=== PATIENT | male | born 1960 | race African-American/Black ===

== ENCOUNTER 2019-09-21 09:08 | Emergency (ER) | payer OTHER ==
--- NOTE | 2019-09-21 09:38 | ER ---
Nurse's Notes [facility] Name: Diego Watt Age: 58 yrs Sex: Male : 1960 Arrival Date: 09/21/2019 Time: 09:13 Bed Waiting Private MD: Diagnosis: Presentation: 09/21 09:28 Presenting complaint: Patient states: "I think I have a tooth abscess on the left side aa5 and my ear hurts and my throat hurts too". No facial swelling noted in triage. Pt reports symptoms began 1 week ago. Transition of care: patient was not received from another setting of care. Onset of symptoms was September 2019. Risk Assessment: Do you want to hurt yourself or someone else? Patient reports no desire to harm self or others. Initial Sepsis Screen: Does the patient meet any 2 criteria? No. Patient's initial sepsis screen is negative. Does the patient have a suspected source of infection? No. Patient's initial sepsis screen is negative. Care prior to arrival: None. 09:28 Acuity: RANJEET 3 aa5 09:28 Method Of Arrival: Ambulatory aa5 Historical: - Allergies: 09:30 No Known Allergies; aa5 - PMHx: 09:30 Hypertension; aa5 09:31 COPD; Hyperlipidemia; Chronic pain; aa5 - PSHx: 09:30 Hardware in right ankle; aa5 - Immunization history:: Flu vaccine is not up to date. - Social history:: Smoking status: Patient/guardian denies using tobacco. - Ebola Screening: : No symptoms or risks identified at this time. Vital Signs: 09:31 BP 135 / 87; Pulse 63; Resp 16 S; Temp 98.0(TE); Pulse Ox 98% on R/A; Weight 86.64 kg aa5 (R); Height 6 ft. 2 in. (187.96 cm) (R); Pain 10/10; 09:31 Body Mass Index 24.52 (86.64 kg, 187.96 cm) aa5 ED Course: 09:13 Patient arrived in ED. as 09:28 Arm band placed on. aa5 09:30 Triage completed. aa5 09:36 Conrad Colunga MD is Attending Physician. aa5 Administered Medications: No medications were administered Outcome: 09:36 Patient left the ED. aa5 Signatures: Margaret Moraes, Gina, RN RN aa5
[2019-09-21 13:28] VITALS: BP 135/87; TEMP 98; O2SAT 98
--- OUTSIDE RECORDS SUMMARY | 2019-09-25 03:00 | XMS REPORT | Summary of Care ---
:1960 Author Organization [facility] - Health Address [address] [place] [address] Care Team Providers Name Role Phone Won Barriga Primary Care Provider Encounter Details Date Type Department Care Team Description 06/26/2019 Orders Only [facility] Doctor Unassigned, No [address] [facility] Name [place] [id number] [place] [address] Allergies No Known Allergiesdocumented as of this encounter (statuses as of 06/26/2019) Medications Medication Sig Dispensed Refills Start Date End Date Status HYDROcodone-acetaminophe Take 1 tablet by 0 Active n (NORCO) 10-325 mg mouth 3 (three) tablet times daily. carisoprodol (SOMA) 350 Take 350 mg by 0 Active mg tablet mouth 2 (two) times daily. amitriptyline (ELAVIL) Take 25 mg by 0 Active 25 mg tablet mouth at bedtime. zolpidem (AMBIEN CR) Take 12.5 mg by 0 Active 12.5 mg CR tablet mouth at bedtime. meloxicam (MOBIC) 7.5 mg Take 7.5 mg by 0 Active tablet mouth daily. documented as of this encounter (statuses as of 06/26/2019) Active Problems No known active problemsdocumented as of this encounter (statuses as of 2018) Social History Tobacco Use Types Packs/Day Years Used Date Former Smoker Quit: 06/06/2006 Smokeless Tobacco: Never Used Alcohol Use Drinks/Week oz/Week Comments Yes 0 Standard drinks or equivalent 0.0 Occasional Drinker Sex Assigned at Date Recorded Not on file Job Start Date Occupation Industry Not on file Not on file Not on file Travel History Travel Start Travel End No recent travel history available. documented as of this encounter Last Filed Vital Signs Not on filedocumented in this encounter Plan of Treatment Date Type Specialty Care Team Description 06/26/2019 [place] Visit Clinical Medical Jessica De La Garza MD [address] [place] [address] Laboratory 1, [facility] Health Maintenance Due Date Last Done Comments HEPATITIS C (HCV) SCREEN 1960 DTaP,Tdap,and Td Vaccines (1 - 1979 Tdap) COLONOSCOPY 2010 Zoster Recombinant Vaccine 2010 (SHINGRIX) (1 of 2) LUNG CANCER SCREEN: Recommended 2015 for age 55-80 with 30 + pack year history INFLUENZA VACCINE 07/16/2019 PNEUMOCOCCAL 0-64 YEARS COMBINED Aged Out No longer eligible based on SERIES patient's age to complete this topic documented as of this encounter Procedures Procedure Name Priority Date/Time Associated Diagnosis Comments ASSIGNMENT OF BENEFITS Routine 06/26/2019 9:52 AM CDT documented in this encounter Results Not on filedocumented in this encounter Insurance Payer Benefit Plan / Subscriber ID Effective Phone Address Type Group Dates ALBERTO DOMINGUEZ xxxxxxxxx 2015-Pres [address] Medicaid HEALTHCARE - HEALTHCARE [place] [id number] MANAGED MEDICAID [place], [place] MEDICARE MEDICARE PART xxxxxxxxxxx 2017-Pres [phone] Medicare A & B ent [id number] [place] [address] [facility] MEDICAID OF xxxxxxxxx 2018-Pres [phone] [address] Medicaid [place] ent [id number] [place] [address] documented as of this encounter
--- OUTSIDE RECORDS SUMMARY | 2019-09-25 03:00 | XMS REPORT ---
:1960 Author Organization [employer] Care Team Providers Name Role Phone Linus [facility] Provider Role Unavailable Allergies, Adverse Reactions, Alerts Substance Reaction Event Type N.K.D.A. Info Not Available Non Drug Allergy Problems Problem Type Condition Code Onset Dates Condition Status Problem Asthma, unspecified asthma J45.909 Active severity, unspecified whether complicated, unspecified whether persistent Problem Osteoarthritis of multiple joints, M15.9 Active unspecified osteoarthritis type Problem Insomnia, unspecified type G47.00 Active Assessment Upper respiratory tract infection, J06.9 Active unspecified type Assessment Acute non-recurrent maxillary J01.00 Active sinusitis Problem Dribbling of urine N39.43 Active Problem Chronic pain syndrome G89.4 Active Problem Seasonal allergies J30.2 Active Problem Essential hypertension I10 Active Problem Chronic obstructive pulmonary J44.9 Active disease, unspecified COPD type Problem Urinary hesitancy R39.11 Active Problem Hypercholesterolemia E78.00 Active Problem Gastroesophageal reflux disease K21.9 Active without esophagitis Medications Medication Code Code Instructions Start End Status Dosage System Date Date Diclofenac [facility] 47032571005 1 % Transdermal Active not defined Sodium Medrol [facility] 35784034579 4 MG Orally use Sep 21, Sep 27, Active as directed as directed 2018 2018 Lisinopril-Hydr [facility] 89238678882 10-12.5 MG Active 1 tablet ochlorothiazide Orally Once a day Zetia [facility] 62917545000 10 MG Orally Jul 20, Active 1 tablet Once a day 2018 Cilostazol ND 66140383188 100 MG Orally Active not defined Ipratropium ND 42640813090 0.02 % Active 1 vial in [place] Inhalation nebulizer every 6-8 hours PRN cough Ambien ND 02589597206 5 MG Orally Active 1 tablet at Once a day bedtime as needed Hydrocodone-Pietro ND 93595002177 7.5-325 MG Active not defined taminophen Orally Combivent [facility] 15559703136 20MCG /100 MCG Active 2 puffs Respimat Oral Inhalation every 4-6 hours as needed SOB Cough Amoxicillin-Pot [facility] 35246064698 875-125 MG Sep 21, Oct 01, Active 1 tablet Clavulanate Orally every 2018 hrs Tizanidine HCl [facility] 15643370937 4 MG Orally Active not defined Results No Known Results Summary Purpose [employer]Clinical[employer] Submission
--- OUTSIDE RECORDS SUMMARY | 2019-09-25 03:00 | XMS REPORT ---
:1960 Author Organization [employer] Care Team Providers Name Role Phone Won Barriga Provider Role Unavailable Allergies No Known Allergies Problems Problem Type Condition Code Onset Dates Condition Status Problem Asthma, unspecified asthma J45.909 Active severity, unspecified whether complicated, unspecified whether persistent Problem Osteoarthritis of multiple joints, M15.9 Active unspecified osteoarthritis type Problem Insomnia, unspecified type G47.00 Active Assessment Chronic obstructive pulmonary J44.9 Active disease, unspecified COPD type Assessment Screening for colon cancer Z12.11 Active Problem Dribbling of urine N39.43 Active Problem Chronic pain syndrome G89.4 Active Problem Seasonal allergies J30.2 Active Problem Essential hypertension I10 Active Problem Chronic obstructive pulmonary J44.9 Active disease, unspecified COPD type Problem Urinary hesitancy R39.11 Active Problem Hypercholesterolemia E78.00 Active Problem Gastroesophageal reflux disease K21.9 Active without esophagitis Medications Medication Code Code Instructions Start End Date Status Dosage System Date Combivent [facility] 10749127769 20MCG /100 MCG Active 2 puffs Respimat Oral Inhalation every 4-6 hours as needed SOB Cough Results No Known Results Summary Purpose eClinicalWorks Submission
--- OUTSIDE RECORDS SUMMARY | 2019-09-25 03:00 | XMS REPORT | Summary of Care ---
:1960 Author Organization [facility] Address [address] [place] [address] Care Team Providers Name Role Phone BarrigaSilvestre solorzanoh Lindsey Primary Care Provider Reason for Visit Reason Comments LAB WORK Auth/Cert Status Reason Specialty Diagnoses / Referred By Referred To Procedures Contact Contact Clinical Medical Diagnoses Pure hypercholesterolemia, unspecified Pure hypercholesterolemia, unspecified [E78.00] [facility] Lab Laboratory Procedures LIPID,U/A,CBC,CMP [address] [facility] [place] [address] Encounter Details Date Type Department Care Team Description 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 [facility] Jessica De La Garza MD [address] [place] [address] Pure hypercholesterolemia (Primary Dx); Phlebotomy 1, [facility] Lab Essential hypertension, benign Lab-[address] [place] [address] Allergies No Known Allergiesdocumented as of this [...] filedocumented in this encounter Plan of Treatment Name Type Priority Associated Diagnoses Date/Time LIPID PANEL (82038)(TOTAL LAB Routine Pure 06/26/2019 10:06 AM CHOLESTEROL, hypercholesterolemia CDT TRIGLYCERIDES, HDL) Essential hypertension, benign CBC WITH DIFF LAB Routine Pure 06/26/2019 10:06 AM hypercholesterolemia CDT Essential hypertension, benign COMP. METABOLIC PANEL LAB Routine Pure 06/26/2019 10:06 AM (34980) hypercholesterolemia CDT Essential hypertension, benign CBC WITH DIFFERENTIAL LAB Routine Pure 06/26/2019 10:06 AM hypercholesterolemia CDT Essential hypertension, benign Name Type Priority Associated Diagnoses Order Schedule URINALYSIS LAB Routine Pure hypercholesterolemia Ordered: 06/26/2019 Essential hypertension, benign Health Maintenance Due Date Last Done Comments [...] this topic documented as of this encounter Results Not on filedocumented in this encounter Visit Diagnoses Diagnosis Pure hypercholesterolemia - Primary Essential hypertension, benign documented in this encounter Insurance Payer Benefit Plan / Subscriber ID Effective Dates Phone Address Type Group MEDICARE MEDICARE PART xxxxxxxxxxx 2017-Annamarie [phone] [address] Medicare A & B t [id number] [place] [address] [facility] MEDICAID OF xxxxxxxxx 2018-Annamarie [phone] [address] Medicaid [place] 0 [id number] [place] [address] documented as of this encounter
--- OUTSIDE RECORDS SUMMARY | 2019-09-25 03:00 | XMS REPORT ---
:1960 [facility] Address [address] [place] [address] [address] [place] [address] Care Team Providers Name Role Phone Unavailable Unavailable Unavailable Problems This patient has no known problems. Allergies, Adverse Reactions, Alerts This patient has no known allergies or adverse reactions. Medications This patient has no known medications.
== END 2019-09-21 09:36 | disposition left against medical advice (07) ==
LOC: ER 09:08
DX: Z02.9 Encounter for administrative examinations, unspecified (principal)
CPT/HCPCS: 99281

== ENCOUNTER 2021-10-10 10:43 | Emergency (ER) | payer OTHER ==
[2021-10-10] MEDS ORDERED: ACETAMINOPHEN 500 MG TAB ONE (11:22)
[2021-10-10] MEDS ORDERED: IBUPROFEN 400 MG TAB ONE (11:22)
--- NOTE | 2021-10-10 11:27 | ER ---
Nurse's Notes [facility] Name: Diego Watt Age: 60 yrs Sex: Male : 1960 Arrival Date: 10/10/2021 Time: 10:49 Bed 11 Private MD: Won Barriga Diagnosis: Disorder of teeth and supporting structures, unspecified Presentation: 10/10 10:58 Chief complaint: Patient states: "I was brushing my teeth and the toothbrush scraped my ss gums and now the whole L side of my face is hurting up to my ear. It started , but got worse this morning" Pt reports poor dentition. Coronavirus screen: Client denies travel out of the [place] in the last 14 days. Ebola Screen: Patient denies exposure to infectious person. Patient denies travel to an Ebola-affected area in the 21 days before illness onset. Initial Sepsis Screen: Does the patient meet any 2 criteria? No. Patient's initial sepsis screen is negative. Does the patient have a suspected source of infection? No. Patient's initial sepsis screen is negative. Risk Assessment: Do you want to hurt yourself or someone else? Patient reports no desire to harm self or others. Onset of symptoms was October 09, 2021. 10:58 Method Of Arrival: Ambulatory ss 10:58 Acuity: RANJEET 4 ss Historical: - Allergies: 11:01 No Known Allergies; ss - PMHx: 11:01 Chronic pain; COPD; Hyperlipidemia; Hypertension; ss - Immunization history:: Client reports receiving the 2nd dose of the Covid vaccine. - Social history:: Smoking status: Patient reports the use of cigarette tobacco products, denies chronic smoking, but will smoke occasionally. Screenin:20 Abuse screen: Denies threats or abuse. Denies injuries from another. Nutritional ss screening: No deficits noted. Tuberculosis screening: Never had TB. Fall Risk None identified. Assessment: 11:20 General: Appears in no apparent distress. comfortable, Behavior is calm, cooperative, ss Denies fever, feeling ill, fatigue, chills. Pain: Complains of pain in L side of gums Pain radiates to left ear Pain currently is 10 out of 10 on a pain scale. Quality of pain is described as aching, Is continuous. Neuro: Level of Consciousness is awake, alert, Oriented to person, place, time, situation. Cardiovascular: Capillary refill < 3 seconds is brisk in bilateral fingers. Respiratory: Airway is patent Respiratory effort is even, unlabored, Respiratory pattern is regular, symmetrical. GI: Patient currently denies diarrhea, nausea, vomiting. EENT: Nares are clear Oral mucosa is moist. Derm: Skin is intact, is healthy with good turgor, Skin is dry, Skin is pink, warm \\T\\ dry. normal. Vital Signs: 10:58 BP 140 / 82; Pulse 63; Resp 16; Temp 97.8(TE); Pulse Ox 100% on R/A; Weight 95.25 kg; ss Height 6 ft. 2 in. (187.96 cm); Pain 10/10; 10:58 Body Mass Index 26.96 (95.25 kg, 187.96 cm) ED Course: 10:49 Patient arrived in ED. mr 10:50 Won Barriga DO is Private Physician. mr 11:01 Triage completed. ss 11:01 Arm band placed on left wrist. ss 11:11 Abdias Means PA is PHCP. cp 11:11 Conrad Colunga MD is Attending Physician. cp 11:20 hCeyenne Wliliamson, CHEN is Primary Nurse. ss 11:20 Patient has correct armband on for positive identification. Bed in low position. Call ss light in reach. 11:26 No provider procedures requiring assistance completed. Patient did not have IV access ss during this emergency room visit. Administered Medications: 11:25 Drug: Tylenol 1000 mg Route: PO; ss 11:36 Follow up: Response: No adverse reaction; Medication administered at discharge. ss 11:25 Drug: Clindamycin 600 mg Route: PO; ss 11:37 Follow up: Response: No adverse reaction; Medication administered at discharge. ss 11:25 Drug: Ibuprofen 800 mg Route: PO; ss 11:37 Follow up: Response: Medication administered at discharge. Outcome: 11:27 Discharge ordered by . cp 11:35 Discharged to home ambulatory. ss 11:35 Condition: good 11:35 Discharge instructions given to patient, family, Instructed on discharge instructions, follow up and referral plans. medication usage, Demonstrated understanding of instructions, follow-up care, Prescriptions given X 2. 11:36 Patient left the ED. Signatures: Soila Gray mr Cheyenne Williamson, RN RN ss Clary, Abdias, PA PA cp
--- NOTE | 2021-10-10 11:27 | EDPHYS ---
Physician Documentation [facility] Name: Diego Watt Age: 60 yrs Sex: Male : 1960 Arrival Date: 10/10/2021 Time: 10:49 Bed 11 Private MD: Linus [facility] ED Physician Conrad Colunga HPI: 10/10 11:20 This 60 yrs old Black Male presents to ER via Ambulatory with complaints of Sinus cp Congestion, Ear Pain, Facial Swelling. 11:20 The patient presents with pain, swelling. The problem is located in the left upper jaw. cp 11:20 Onset: The symptoms/episode began/occurred yesterday, and became worse today. cp Associated signs and symptoms: Pertinent positives: left ear and neck pain, Pertinent negatives: dysphagia, fever, inability to eat, vomiting. Patient reports she was brushing teeth and believes he caused laceration to left upper outer gum line. Patient c/o pain and swelling of face, tooth pain and sinus congestion/pain. Historical: - Allergies: 11: No Known Allergies; ss - PMHx: 11:01 Chronic pain; COPD; Hyperlipidemia; Hypertension; ss - Immunization history:: Client reports receiving the 2nd dose of the Covid vaccine. - Social history:: Smoking status: Patient reports the use of cigarette tobacco products, denies chronic smoking, but will smoke occasionally. ROS: 11:22 Constitutional: Negative for body aches, chills, fever, poor PO intake. cp 11:22 Eyes: Negative for injury, pain, redness, and discharge. cp 11:22 ENT: Positive for dental pain, ear pain, Gum pain sinus congestion, sinus pain, Negative for drainage from ear(s), sore throat, difficulty swallowing, difficulty handling secretions. 11:22 Cardiovascular: Negative for chest pain. 11:22 Respiratory: Negative for cough, shortness of breath, wheezing. 11:22 Abdomen/GI: Negative for abdominal pain, nausea, vomiting, and diarrhea. 11:22 Skin: Negative for rash. 11:22 Neuro: Negative for altered mental status, headache, weakness. 11:22 All other systems are negative. Exam: 11:25 Constitutional: The patient appears in no acute distress, alert, awake, non-toxic, well cp developed, well nourished, uncomfortable. 11:25 Head/face: Sinus tenderness, that is moderate, is located over the left maxillary cp sinus. 11:25 Eyes: Periorbital structures: appear normal, Conjunctiva: normal, no exudate, no injection, Sclera: no appreciated abnormality, Lids and lashes: appear normal, bilaterally. 11:25 ENT: External ear(s): are unremarkable, Ear canal(s): are normal, clear, TM's: dullness, bilaterally, Nose: is normal, Mouth: Lips: moist, Oral mucosa: moist, Gums: swollen, on the gums, abscess, is not appreciated, Posterior pharynx: Airway: no evidence of obstruction, patent, swelling, is not appreciated, erythema, is not appreciated, exudate, is not appreciated, Dental exam: abscess, is not appreciated, dental caries, that is severe, diffusely, missing teeth, diffusely, pain, that is mild, specifically in the upper left cuspid (#11), Voice: is normal. 11:25 Neck: External neck: swelling, is not appreciated, tenderness, that is mild, left lateral neck, ROM/movement: limited range of motion, is not appreciated, Meningeal signs: are not present, nuchal rigidity, is not appreciated. 11:25 Chest/axilla: Inspection: normal. 11:25 Cardiovascular: Rate: normal. 11:25 Respiratory: the patient does not display signs of respiratory distress, Respirations: normal, no use of accessory muscles, no retractions. 11:25 Skin: cellulitis, is not appreciated, no rash present. 11:25 Neuro: Orientation: to person, place \T\ time. Mentation: is normal. Vital Signs: 10:58 BP 140 / 82; Pulse 63; Resp 16; Temp 97.8(TE); Pulse Ox 100% on R/A; Weight 95.25 kg; ss Height 6 ft. 2 in. (187.96 cm); Pain 10/10; 10:58 Body Mass Index 26.96 (95.25 kg, 187.96 cm) ss MDM: 11:19 Patient medically screened. cp 11:25 Differential diagnosis: dental caries, dental abscess, gingivostomatitis. cp 11:25 Counseling: I had a detailed discussion with the patient and/or guardian regarding: the cp historical points, exam findings, and any diagnostic results supporting the discharge/admit diagnosis, the need for outpatient follow up, for definitive care, a dentist, to return to the emergency department if symptoms worsen or persist or if there are any questions or concerns that arise at home. ED course: VSS. Patient appears non-toxic. Review of [place] prescription monitor website shows patient has recent prescription for hydrocodone. Will discharge to home with RX for oral antibiotic and recommend dental f/u. 11:26 Data reviewed: vital signs, nurses notes. cp Administered Medications: 11:25 Drug: Tylenol 1000 mg Route: PO; ss 11:36 Follow up: Response: No adverse reaction; Medication administered at discharge. ss 11:25 Drug: Clindamycin 600 mg Route: PO; ss 11:37 Follow up: Response: No adverse reaction; Medication administered at discharge. ss 11:25 Drug: Ibuprofen 800 mg Route: PO; ss 11:37 Follow up: Response: Medication administered at discharge. ss Disposition: 11:45 Chart complete. cp 17:21 Co-signature as Attending Physician, Conrad Colunga MD I agree with the assessment and kdr plan of care. Disposition Summary: 10/10/21 11:27 Discharge Ordered Location: Home cp Problem: new cp Symptoms: have improved cp Condition: Stable cp Diagnosis - Disorder of teeth and supporting structures, unspecified cp Followup: cp - With: Private Physician - When: 2 - 3 days - Reason: Recheck today's complaints Discharge Instructions: - Discharge Summary Sheet cp - Dental Pain cp Forms: - Medication Reconciliation Form cp - Thank You Letter cp - Antibiotic Education cp - Prescription Opioid Use cp Prescriptions: - Clindamycin HCl 300 mg Oral Capsule - take 1 capsule by ORAL route every 6 hours for 10 days; 40 capsule; Refills: 0, cp Product Selection Permitted - Ibuprofen 800 mg Oral Tablet - take 1 tablet by ORAL route every 8 hours As needed take with food; 30 tablet; cp Refills: 0, Product Selection Permitted Signatures: Conrad Colunga MD MD [facility] Cheyenne Williamson RN RN ss Abdias Means PA PA cp
[2021-10-10 11:44] VITALS: BP 140/82; TEMP 97.8; O2SAT 100
--- OUTSIDE RECORDS SUMMARY | 2021-10-10 11:51 | XMS REPORT | Continuity of Care Document ---
:1960 Author Organization [facility] t Address [address] [place] [address] Care Team Providers Name Role Phone 1, Lab Attending Clinician Unavailable Ward De La Garza MD Attending Clinician Doctor Unassigned, Name Attending Clinician Unavailable Payers Payer Name Policy Type Policy Number Effective Date Expiration Date S ource Problems Condition Condition Condition Status Onset Resolution Last Treating Co mments Source Name Details Category Date Date Treatment Clinician Date No known No known Disease Unive rs active active ity of problems problems [facility] Allergies, Adverse Reactions, Alerts This patient has no known allergies or adverse reactions. Social History Social Habit Start Date Stop Date Quantity Comments Source Alcohol intake [facility] History of 2006-06-06 Current smoker [place] of tobacco use 00:00:00 [facility] Smoking Status Start Date Stop Date Source Former smoker 2019-03-20 00:00:00 2019-03-20 00:00:00 [facility] Medications Ordered Filled Start Stop Current Ordering Indication Dosage Frequency Signature Comments Components Source Medication Medication Date Date Medication? Clinician (SIG) Name Name Claritin Claritin 2020-0 2020- No Won [address] [facility] Fenofibrate Fenofibrate 2018- Yes Won [address] [facility] 2[facility]03 [facility] with food [facility] amitriptyli Yes 25mg Take 25 mg Univers ne (ELAVIL) 4-15 by mouth ity of 25 mg 15:05: at [place] tablet 26 bedtime. Medical Branch zolpidem Yes 12.5mg Take 12.5 Un jeri (AMBIEN CR) 4-15 mg by ity of 12.5 mg CR 15:05: mouth at [place] tablet 26 bedtime. Medical Branch meloxicam Yes 7.5mg Take 7.5 Uni vers (MOBIC) 7.5 4-15 mg by ity of mg tablet 15:05: mouth [place] 26 daily. Medical Branch HYDROcodone Yes 1{tbl} Take 1 Un jeri -acetaminop 4-15 tablet by ity of hen (NORCO) 15:05: mouth 3 [place] as 10-325 mg 26 (three) Medical tablet times Branch daily. carisoprodo Yes 350mg Take 350 U nivers l (SOMA) 4-15 mg by ity of 350 mg 15:05: mouth 2 [place] tablet 26 (two) Medical times Branch daily. amitriptyli Yes 25mg Take 25 mg Univers ne (ELAVIL) 4-15 by mouth ity of 25 mg 15:05: at [place] tablet 26 bedtime. Medical Branch zolpidem Yes 12.5mg Take 12.5 Un jeri (AMBIEN CR) 4-15 mg by ity of 12.5 mg CR 15:05: mouth at [place] tablet 26 bedtime. Medical Branch meloxicam Yes 7.5mg Take 7.5 Uni vers (MOBIC) 7.5 4-15 mg by ity of mg tablet 15:05: mouth [place] 26 daily. Medical Branch HYDROcodone Yes 1{tbl} Take 1 Un jeri -acetaminop 4-15 tablet by ity of hen (NORCO) 15:05: mouth 3 [place] as 10-325 mg 26 (three) Medical tablet times Branch daily. carisoprodo Yes 350mg Take 350 U nivers l (SOMA) 4-15 mg by ity of 350 mg 15:05: mouth 2 [place] tablet 26 (two) Medical times Branch daily. Ipratropium Ipratropium Yes Won [address] [facility] [place] [facility] nebulizer Porsha es - [facility] Tizanidine Tizanidine Yes Won not [facility] HCl HCl [facility] defined [facility] Lisinopril- Lisinopril- Yes Won [address] [facility] Hydrochloro Hydrochloro [facility] - thiazide thiazide [facility] Zetia Zetia Yes Won [address] [facility] amitriptyli amitriptyli Yes Won not [facility] ne ne [facility] defined [facility] Hydrocodone Hydrocodone Yes Own not [facility] -Acetaminop -Acetaminop [facility] defined [facility] hen [facility] Diclofenac Diclofenac Yes Won not [facility] Sodium Sodium [facility] defined [facility] Ambien Ambien Yes Won 1 tablet [facility] at bedtime [facility] - as needed [facility] Ezetimibe Ezetimibe Yes Won (Prior [facility] Auth#:0000 [facility] - [id number]) [facility] Zolpidem Zolpidem Yes Won (Schedule [facility] Tartrate Tartrate [facility] IV Drug) Cora kes - (Prior [facility] Auth#:0000 l [id number]) Outpati ent Clinics Cilostazol Cilostazol Yes Won not [facility] defined [facility] Combivent Combivent 2018- No Won [address] [facility] Respimat Respimat 10-18 [facility] Procedures Procedure Date / Time Performed Performing Clinician [facility] e ASSIGNMENT OF BENEFITS 2019-06-26 14:52:33 Doctor Unassigned, No [facility] Encounters Start End Encounter Admission Attending Care Care Encounter Source Date/Time Date/Time Type Type Clinicians Facility Department ID 2021-09-15 2021-09-15 ambulatory [facility] [id number] [facility] 2021-09-11 2021-09-11 Outpatient [facility] [id number] [facility] 2021-07-07 2021-07-07 Outpatient [facility] [id number] [facility] 2021-06-13 2021-06-13 Outpatient [facility] [id number] [facility] 2021-05-22 2021-05-22 Outpatient [facility] [id number] [facility] 2021-05-21 2021-05-21 Outpatient [facility] [id number] [facility] 2021-04-15 2021-04-15 Outpatient [facility] [id number] [facility] 2021-01-23 2021-01-23 Outpatient [facility] [id number] [facility] 2021-01-21 2021-01-21 Outpatient [facility] [id number] [facility] 2021-01-16 2021-01-16 Outpatient [facility] [id number] [facility] 2020-11-14 2020-11-14 Outpatient [facility] [id number] [facility] 2020-10-24 2020-10-24 Outpatient [facility] [id number] [facility] 2020-07-25 2020-07-25 [facility] [id number] [facility] 09:00:00 09:00:[address] Luke s - Drive [facility] 2020-07-25 2020-07-25 [facility] [id number] [facility] [address] 08:00:00 08:00:00 t [employer] Geelbe s - Drive [facility] ent Clinics 2020-05-20 2020-05-20 [facility] [id number] [address] 09:15:00 09:15:00 t Bone Bone and [facility] ent [facility] 2020-04-19 2020-04-19 [facility] [id number] [address] 08:15:00 08:15:00 t [employer] Geelbe s [employer] [facility] ent Clinics 2020-03-19 2020-03-19 [facility] [id number] 08:30:00 08:30:00 t Bone [facility] and [facility] ent Clinics 2020-02-13 2020-02-13 [facility] [id number] [address] 13:20:00 13:20:[address] [facility] ent Clinics 2020-02-13 2020-02-13 [facility] [id number] 09:10:00 09:10:00 t [employer] Geelbe s [employer] [facility] ent Clinics 2020-01-18 2020-01-18 [facility] [id number] [address] 08:15:00 08:15:00 t Sandy [employer] Geelbe s - [facility] ent Clinics 2019-12-12 2019-12-12 [facility] [id number] 15:15:00 15:15:00 t Bone Bone and [facility] ent Clinics 2019-12-11 2019-12-11 [facility] [id number] 15:03:00 15:03:00 t Sandy [employer] Geelbe [employer] [facility] ent Clinics 2019-11-30 2019-11-30 [facility] [id number] 10:06:00 10:06:00 t Sandy [employer] Luke s - Drive [facility] 2019-11-30 2019-11-30 [facility] [id number] 08:36:00 08:36:00 t Bone Bone and [facility] ent Clinics 2019-11-22 2019-11-22 [facility] [id number] 11:29:00 11:29:00 t Bone [facility] and [facility] ent Clinics 2019-11-22 2019-11-22 [facility] [id number] [address] 08:00:00 08:00:00 t Bone Bone and [facility] ent Clinics 2019-10-30 2019-10-30 [facility] [id number] 09:58:00 09:58:00 t Sandy Sandy [employer] Luke s - Drive [facility] 2019-10-17 2019-10-17 [facility] [id number] 09:00:00 09:00:00 t Sandy [employer] Luke s - Drive [facility] 2019-10-10 2019-10-10 [facility] [id number] 17:02:00 17:02:[address] Luke s - Drive [facility] 2019-09-21 2019-09-21 [facility] [id number] 10:00:00 10:00:[address] Luke s - Drive [facility] 2019-08-15 2019-08-15 [facility] [id number] 10:29:00 10:29:00 t Sandy [employer] Luke s - Drive [facility] 2019-07-20 2019-07-20 [facility] [id number] 13:45:00 13:45:[address] Luke s - Elephant[employer]is [facility] Medicine Medicine Outpati ent Clinics 2019-07-13 2019-07-13 [facility] [id number] [address] 10:53:00 10:53:00 [employer] - Ele[employer] [facility] Medicine Outpati ent Clinics 2019-06-26 2019-06-26 Travel Professional 1, Adc Lab [facility] [id number] [facility] 09:53:08 10:08:08 Visit Jessica De La Garza [id number] ity of [place] [id number] [facility] [id number] [facility] 353 Branch 2019-06-26 2019-06-26 Orders Doctor RUDY [id number] Univers 00:00:00 00:00:00 Only Unassigned, MARIEL [id number] ity of [place] [facility] [id number] [place] [id number] [facility] 009 Branch 2019-06-15 2019-06-15 [facility] [id number] [address] 08:45:00 08:45:00 [employer] [facility] Medicine Outpati ent Clinics 2019-06-09 2019-06-09 [facility] [id number] 09:31:00 09:31:00 [employer] [facility] Medicine Outpati ent Clinics 2018-06-22 2018-06-22 [facility] [id number] 10:45:00 10:45:00 [employer] [facility] Medicine Outpati ent Clinics Results This patient has no known results.
== END 2021-10-10 11:36 | disposition home or self-care (01) ==
LOC: ER 10:43
DX: K08.9 Disorder of teeth and supporting structures, unspecified (principal); G89.4 Chronic pain syndrome; I10 Essential (primary) hypertension; F17.210 Nicotine dependence, cigarettes, uncomplicated
CPT/HCPCS: 99283

== ENCOUNTER → 2023-11-04 | Emergency (ER) | payer OTHER ==
[~2023-11-04] MED LIST: ALBUTEROL 2.5 MG/3 ML NEB SOL ONE; IPRATROPIUM BROM 0.5MG/2.5ML ONE; METHYLPREDNISOLONE 125 MG INJ ONE
--- OUTSIDE RECORDS SUMMARY | 2023-11-04 10:08 | XMS REPORT | Continuity of Care Document ---
Author Name Unknown Address [address] [facility] [address] [place] [address] [facility] thconnect Address [address] [facility] [place] [address] Care Team Providers Care Inventory Specialist Name Role Phone Won Barriga Attending Clinician Unavailable 1, [facility] Attending Clinician Unavailable Frederic MARIE, Jessica Hopper Attending Clinician Doctor Unassigned, [place] Attending Clinician U navailable Payers Payer Name Policy Type Policy Number Effective Date Expiration Date Source [facility] [id number] [facility] Problems Condition Name Condition Details Condition Category Status Onset Date Resolution Date Last Treatment Date Treating Clinician Comments Source [id number] BRAYAN (generaliz ed anxiety disorder) Problem [facility] [id number] Asthma, unspecifie d asthma severity, unspecifie d whether complicate d, unspecifie d whether persistent Problem [facility] [id number] Essential hypertensi on Problem [facility] [id number] Insomnia, unspecifie d type Problem [facility] [id number] Osteoarthr itis of multiple joints, unspecifie d osteoarthr itis type Problem [facility] [id number] Dribbling of urine Problem [facility] [id number] COPD with exacerbati on Problem [facility] [id number] Gastroesop hageal reflux disease without esophagiti s Problem [facility] [id number] Hyperchole sterolemia Problem [facility] [id number] Seasonal allergies Problem [facility] [id number] Incomplete emptying of bladder Problem [facility] [id number] Chronic obstructiv e pulmonary disease, unspecifie d COPD type Problem [facility] [id number] BPH loc w urin obs/LUTS Problem [facility] [id number] Urinary hesitancy Problem [facility] [id number] Chronic pain syndrome Problem [facility] [id number] Hypercalce brian Problem [facility] [id number] Osteoarthr itis of left shoulder, unspecifie d osteoarthr itis type Problem [facility] [id number] 101 Benign prostatic hyperplasi a with lower urinary tract symptoms Problem [facility] No known active problems No known active problems Disease [facility] Social History Social Habit Start Date Stop Date Quantity Comments Source History of Tobacco Use [facility] Sex Assigned At [facility] Alcohol intake [facility] Alcohol Comment [facility] Smoking Status Start Date Stop Date Source Former Smoker 2023-08-20 00:00:00 2023-08-20 00:00:00 [facility] Medications Ordered Medication Name Filled Medication Name Start Date Stop Date Current Medication? Ordering Clinician Indication Dosage Frequency Signature (SIG) Comments Components Source Zolpidem Tartrate ER 6.25 MG Zolpidem Tartrate ER 6.25 MG 2022-11 0 00:00: 00 No 1{table t_at_be dtime_a s_neede d} QD Zolpidem Tartrate ER 6.25 MG predniSONE 20 MG predniSONE 20 MG 2022-11 0- 00:00: 00 No 2{table t} QD predniSONE 20 MG Azithromyci n 250 MG Azithromyci n 250 MG 2022-11 0-10 00:00: 00 No QD Azithromyc in 250 MG Zolpidem Tartrate ER 6.25 MG Zolpidem Tartrate ER 6.25 MG 2022-11 0-10 00:00: 00 No 1{table t_at_be dtime_a s_neede d} QD Zolpidem Tartrate ER 6.25 MG predniSONE 20 MG predniSONE 20 MG 2022-11 0-10 00:00: 00 No 2{table t} QD predniSONE 20 MG Azithromyci n 250 MG Azithromyci n 250 MG 2022-11 0-10 00:00: 00 No QD Azithromyc in 250 MG Zolpidem Tartrate ER 6.25 MG Zolpidem Tartrate ER 6.25 MG 2022-11 010 00:00: 00 No 1{table t_at_be dtime_a s_neede d} QD Zolpidem Tartrate ER 6.25 MG predniSONE 20 MG predniSONE 20 MG 2022-11 010 00:00: 00 No 2{table t} QD predniSONE 20 MG Azithromyci n 250 MG Azithromyci n 250 MG 2022-11 010 00:00: 00 No QD Azithromyc in 250 MG Zolpidem Tartrate ER 6.25 MG Zolpidem Tartrate ER 6.25 MG 2022-11 010 00:00: 00 No 1{table t_at_be dtime_a s_neede d} QD Zolpidem Tartrate ER 6.25 MG predniSONE 20 MG predniSONE 20 MG 2022-11 010 00:00: 00 No 2{table t} QD predniSONE 20 MG Azithromyci n 250 MG Azithromyci n 250 MG 2022-11 010 00:00: 00 No QD Azithromyc in 250 MG Zolpidem Tartrate ER 6.25 MG Zolpidem Tartrate ER 6.25 MG 2022-11 010 00:00: 00 No 1{table t_at_be dtime_a s_neede d} QD Zolpidem Tartrate ER 6.25 MG predniSONE 20 MG predniSONE 20 MG 2022-11 0-10 00:00: 00 No 2{table t} QD predniSONE 20 MG Azithromyci n 250 MG Azithromyci n 250 MG 2022-11 0-10 00:00: 00 No QD Azithromyc in 250 MG Zolpidem Tartrate ER 6.25 MG Zolpidem Tartrate ER 6.25 MG 2022-11 0-10 00:00: 00 No 1{table t_at_be dtime_a s_neede d} QD Zolpidem Tartrate ER 6.25 MG predniSONE 20 MG predniSONE 20 MG 2022-11 0-10 00:00: 00 No 2{table t} QD predniSONE 20 MG Azithromyci n 250 MG Azithromyci n 250 MG 2022-11 0-10 00:00: 00 No QD Azithromyc in 250 MG Zolpidem Tartrate ER 6.25 MG Zolpidem Tartrate ER 6.25 MG 2022-11 0-10 00:00: 00 No 1{table t_at_be dtime_a s_neede d} QD Zolpidem Tartrate ER 6.25 MG predniSONE 20 MG predniSONE 20 MG 2022-11 0-10 00:00: 00 No 2{table t} QD predniSONE 20 MG Azithromyci n 250 MG Azithromyci n 250 MG 2022-11 0-10 00:00: 00 No QD Azithromyc in 250 MG Zolpidem Tartrate ER 6.25 MG Zolpidem Tartrate ER 6.25 MG 2022-11 0-10 00:00: 00 No 1{table t_at_be dtime_a s_neede d} QD Zolpidem Tartrate ER 6.25 MG predniSONE 20 MG predniSONE 20 MG 2022-11 0-10 00:00: 00 No 2{table t} QD predniSONE 20 MG Azithromyci n 250 MG Azithromyci n 250 MG 2022-11 0-10 00:00: 00 No QD Azithromyc in 250 MG Kenalog (Triamcinol one) Kenalog (Triamcinol one) 2-17 00:00: 00 No 40mg [facility] Kenalog (Triamcinol one) Kenalog (Triamcinol one) 2-17 00:00: 00 No 40mg [facility] Kenalog (Triamcinol one) Kenalog (Triamcinol one) 0 2-17 00:00: 00 No 40mg [facility] Kenalog (Triamcinol one) Kenalog (Triamcinol one) 0 2-17 00:00: 00 No 40mg [facility] Kenalog (Triamcinol one) Kenalog (Triamcinol one) 0 2-17 00:00: 00 No 40mg [facility] Kenalog (Triamcinol one) Kenalog (Triamcinol one) 0 2-17 00:00: 00 No 40mg [facility] Kenalog (Triamcinol one) Kenalog (Triamcinol one) 0 2-17 00:00: 00 No 40mg [facility] Kenalog (Triamcinol one) Kenalog (Triamcinol one) 0 2-17 00:00: 00 No 40mg [facility] Zolpidem Tartrate 5 MG Zolpidem Tartrate 5 MG 2021- 2-12 00:00: 00 No QD Zolpidem Tartrate 5 MG Zolpidem Tartrate 5 MG Zolpidem Tartrate 5 MG 2021-11 2-12 00:00: 00 No QD Zolpidem Tartrate 5 MG Ambien 5 MG Ambien 5 MG 2021-11 0-19 00:00: 00 No 1{table t_at_be dtime_a s_neede d} Ambien 5 MG Ambien 5 MG Ambien 5 MG 2021-11 0-19 00:00: 00 No 1{table t_at_be dtime_a s_neede d} Ambien 5 MG DULoxetine HCl 30 MG DULoxetine HCl 30 MG 2021- 0-10 00:00: 00 No 1{capsu le} QD DULoxetine HCl 30 MG DULoxetine HCl 30 MG DULoxetine HCl 30 MG 2021- 0-10 00:00: 00 No 1{capsu le} QD DULoxetine HCl 30 MG Ambien 5 MG Ambien 5 MG 2021-0 7-21 00:00: 00 No 1{table t_at_be dtime_a s_neede d} Ambien 5 MG Ambien 5 MG Ambien 5 MG 2021-0 06-04 00:00: 00 No 1{table t_at_be dtime_a s_neede d} Ambien 5 MG Ambien 5 MG Ambien 5 MG 0 06-04 00:00: 00 No 1{table t_at_be dtime_a s_neede d} Ambien 5 MG Ambien 5 MG Ambien 5 MG 0 03-10 00:00: 00 No 1{table t_at_be dtime_a s_neede d} Ambien 5 MG Ambien 5 MG Ambien 5 MG 0 03-10 00:00: 00 No 1{table t_at_be dtime_a s_neede d} Ambien 5 MG Levocetiriz ine Dihydrochlo ride 5 MG Levocetiriz ine Dihydrochlo ride 5 MG 03-10 00:00: 00 04-09 00:00 :00 No 1{table t_in_th e_eveni ng} QD Levocetiri zine Dihydrochl oride 5 MG Ambien 5 MG Ambien 5 MG 12-08 00:00: 00 No 1{table t_at_be dtime_a s_neede d} Ambien 5 MG Ambien 5 MG Ambien 5 MG 12-08 00:00: 00 No 1{table t_at_be dtime_a s_neede d} Ambien 5 MG Ambien 5 MG Ambien 5 MG 12-08 00:00: 00 No 1{table t_at_be dtime_a s_neede d} Ambien 5 MG Ambien 5 MG Ambien 5 MG 12-08 00:00: 00 No 1{table t_at_be dtime_a s_neede d} Ambien 5 MG Combivent Respimat 20MCG /100 MCG Combivent Respimat 20MCG /100 MCG 12-08 00:00: 00 03-08 00:00 :00 No Combivent Respimat 20MCG /100 MCG Combivent Respimat 20MCG /100 MCG Combivent Respimat 20MCG /100 MCG 12-08 00:00: 00 03-08 00:00 :00 No Combivent Respimat 20MCG /100 MCG Combivent Respimat 20MCG /100 MCG Combivent Respimat 20MCG /100 MCG 12-08 00:00: 00 03-08 00:00 :00 No Combivent Respimat 20MCG /100 MCG Ambien 5 MG Ambien 5 MG 2020-11 00:00: 00 No 1{table t_at_be dtime_a s_neede d} Ambien 5 MG Ambien 5 MG Ambien 5 MG 2020-11 00:00: 00 No 1{table t_at_be dtime_a s_neede d} Ambien 5 MG Combivent Respimat 20-100 MCG/ACT Combivent Respimat 20-100 MCG/ACT 3-05 00:00: 00 No 2{puffs _as_nee ded} Combivent Respimat 20-100 MCG/ACT Combivent Respimat 20-100 MCG/ACT Combivent Respimat 20-100 MCG/ACT 3-05 00:00: 00 No 2{puffs _as_nee ded} Combivent Respimat 20-100 MCG/ACT Combivent Respimat 20-100 MCG/ACT Combivent Respimat 20-100 MCG/ACT 2020-0 3-05 00:00: 00 No 2{puffs _as_nee ded} Combivent Respimat 20-100 MCG/ACT Combivent Respimat 20-100 MCG/ACT Combivent Respimat 20-100 MCG/ACT 2020-0 3-05 00:00: 00 No 2{puffs _as_nee ded} Combivent Respimat 20-100 MCG/ACT Bupivicaine Flatgap Bupivicaine Flatgap 5-05 00:00: 00 No 5mL [facility] Kenalog (Triamcinol one) Kenalog (Triamcinol one) 2019-0 5-05 00:00: 00 No 40mg [facility] Bupivicaine Flatgap Bupivicaine Flatgap 2019-0 5-05 00:00: 00 No 5mL [facility] Kenalog (Triamcinol one) Kenalog (Triamcinol one) 2019-0 5-05 00:00: 00 No 40mg [facility] Bupivicaine Flatgap Bupivicaine Flatgap 2019-0 5-05 00:00: 00 No 5mL [facility] Kenalog (Triamcinol one) Kenalog (Triamcinol one) 0 5-05 00:00: 00 No 40mg [facility] Bupivicaine Flatgap Bupivicaine Flatgap 2019-0 5-05 00:00: 00 No 5mL [facility] Kenalog (Triamcinol one) Kenalog (Triamcinol one) 0 5-05 00:00: 00 No 40mg [facility] Bupivicaine Flatgap Bupivicaine Flatgap 2019-0 5-05 00:00: 00 No 5mL [facility] Kenalog (Triamcinol one) Kenalog (Triamcinol one) 0 5-05 00:00: 00 No 40mg [facility] Bupivicaine Flatgap Bupivicaine Flatgap 2019-0 5-05 00:00: 00 No 5mL [facility] Kenalog (Triamcinol one) Kenalog (Triamcinol one) 0 5-05 00:00: 00 No 40mg [facility] Bupivicaine Flatgap Bupivicaine Flatgap 2019-0 5-05 00:00: 00 No 5mL [facility] Kenalog (Triamcinol one) Kenalog (Triamcinol one) 2019-0 5-05 00:00: 00 No 40mg [facility] Bupivicaine Flatgap Bupivicaine Flatgap 2019-0 5-05 00:00: 00 No 5mL [facility] Kenalog (Triamcinol one) Kenalog (Triamcinol one) 2019-0 5-05 00:00: 00 No 40mg [facility] Bupivicaine Flatgap Bupivicaine Flatgap 2019-0 5-05 00:00: 00 No 5mL [facility] Kenalog (Triamcinol one) Kenalog (Triamcinol one) 2019-0 5-05 00:00: 00 No 40mg [facility] Bupivicaine Flatgap Bupivicaine Flatgap 2019-0 5-05 00:00: 00 No 5mL [facility] Kenalog (Triamcinol one) Kenalog (Triamcinol one) 2019-0 5-05 00:00: 00 No 40mg [facility] Bupivicaine Flatgap Bupivicaine Flatgap 2020-0 5-05 00:00: 00 No 5mL [facility] Kenalog (Triamcinol one) Kenalog (Triamcinol one) 2019-0 5-05 00:00: 00 No 40mg [facility] Bupivicaine Flatgap Bupivicaine Flatgap 2019-0 5-05 00:00: 00 No 5mL [facility] Kenalog (Triamcinol one) Kenalog (Triamcinol one) 2019-0 5-05 00:00: 00 No 40mg [facility] Bupivicaine Flatgap Bupivicaine Flatgap 2019-0 5-05 00:00: 00 No 5mL [facility] Kenalog (Triamcinol one) Kenalog (Triamcinol one) 2019-0 5-05 00:00: 00 No 40mg [facility] Bupivicaine Flatgap Bupivicaine Flatgap 2020-0 5-05 00:00: 00 No 5mL [facility] Kenalog (Triamcinol one) Kenalog (Triamcinol one) 2019-0 5-05 00:00: 00 No 40mg [facility] Bupivicaine Flatgap Bupivicaine Flatgap 2020-0 5-05 00:00: 00 No 5mL [facility] Kenalog (Triamcinol one) Kenalog (Triamcinol one) 0 5-05 00:00: 00 No 40mg [facility] Bupivicaine Flatgap Bupivicaine Flatgap 0 5-05 00:00: 00 No 5mL [facility] Kenalog (Triamcinol one) Kenalog (Triamcinol one) 0 5-05 00:00: 00 No 40mg [facility] Bupivicaine Flatgap Bupivicaine Flatgap 0 5-05 00:00: 00 No 5mL [facility] Kenalog (Triamcinol one) Kenalog (Triamcinol one) 0 5-05 00:00: 00 No 40mg [facility] Bupivicaine Flatgap Bupivicaine Flatgap 0 5-05 00:00: 00 No 5mL [facility] Kenalog (Triamcinol one) Kenalog (Triamcinol one) 5-05 00:00: 00 No 40mg [facility] Bupivicaine Flatgap Bupivicaine Flatgap 5-05 00:00: 00 No 5mL [facility] Kenalog (Triamcinol one) Kenalog (Triamcinol one) 0 5-05 00:00: 00 No 40mg [facility] Claritin Claritin 0 3-31 00:00: 00 08-11 00:00 :00 No Won Barriga 1 tablet [facility] Fenofibrate Fenofibrate 2018-11 2-03 00:00: 00 Yes Won Barriga 1 tablet with food [facility] amitriptyli ne (ELAVIL) 25 mg tablet 02-27 15:05: 26 Yes 25mg Take 25 mg by mouth at bedtime. [facility] zolpidem (AMBIEN CR) 12.5 mg CR tablet 02-27 15:05: 26 Yes 12.5mg Take 12.5 mg by mouth at bedtime. [facility] meloxicam (MOBIC) 7.5 mg tablet 02-27 15:05: 26 Yes 7.5mg Take 7.5 mg by mouth daily. [facility] HYDROcodone -acetaminop hen (NORCO) 10-325 mg tablet 02-27 15:05: 26 Yes 1{tbl} Take 1 tablet by mouth 3 (three) times daily. [facility] carisoprodo l (SOMA) 350 mg tablet 02-27 15:05: 26 Yes 350mg Take 350 mg by mouth 2 (two) times daily. [facility] amitriptyli ne (ELAVIL) 25 mg tablet 02-27 15:05: 26 Yes 25mg Take 25 mg by mouth at bedtime. [facility] zolpidem (AMBIEN CR) 12.5 mg CR tablet 02-27 15:05: 26 Yes 12.5mg Take 12.5 mg by mouth at bedtime. [facility] meloxicam (MOBIC) 7.5 mg tablet 02-27 15:05: 26 Yes 7.5mg Take 7.5 mg by mouth daily. [facility] HYDROcodone -acetaminop hen (NORCO) 10-325 mg tablet 02-27 15:05: 26 Yes 1{tbl} Take 1 tablet by mouth 3 (three) times daily. [facility] carisoprodo l (SOMA) 350 mg tablet 02-27 15:05: 26 Yes 350mg Take 350 mg by mouth 2 (two) times daily. [facility] Ipratropium Meadow Ipratropium Meadow Yes Won Barriga 1 vial in nebulizer [facility] Tizanidine HCl Tizanidine HCl Yes Won Barriga not defined [facility] Lisinopril- Hydrochloro thiazide Lisinopril- Hydrochloro thiazide Yes Won Barriga 1 tablet [facility] Zetia Zetia Yes Won Barriga 1 tablet [facility] amitriptyli ne amitriptyli ne Yes Won Barriga not defined [facility] Hydrocodone -Acetaminop hen Hydrocodone -Acetaminop hen Yes Won Barriga not defined [facility] Diclofenac Sodium Diclofenac Sodium Yes Won Barriga not defined [facility] Ambien Ambien Yes Won Barriga 1 tablet at bedtime as needed [facility] Ezetimibe Ezetimibe Yes Won Barriga (Prior Auth#:[id number]) [facility] Zolpidem Tartrate Zolpidem Tartrate Yes Won Barriga (Schedule IV Drug) (Prior Auth#:[id number]) [facility] Cilostazol Cilostazol Yes Won Barriga not defined [facility] Tamsulosin HCl 0.4 MG Tamsulosin HCl 0.4 MG No 2{capsu les} QD Tamsulosin HCl 0.4 MG Fenofibrate 145 MG Fenofibrate 145 MG No 1{table t_with_ food} QD Fenofibrat e 145 MG HYDROcodone -Acetaminop hen 7.5-325 MG HYDROcodone -Acetaminop hen 7.5-325 MG No HYDROcodon e-Acetamin ophen 7.5-325 MG Lisinopril- hydroCHLORO thiazide 10-12.5 MG Lisinopril- hydroCHLORO thiazide 10-12.5 MG No Lisinopril -hydroCHLO ROthiazide 10-12.5 MG Diclofenac Sodium 1 % Diclofenac Sodium 1 % No Diclofenac Sodium 1 % amitriptyli ne amitriptyli ne No amitriptyl ine tiZANidine HCl 4 MG tiZANidine HCl 4 MG No tiZANidine HCl 4 MG Gabapentin 100 MG Gabapentin 100 MG No 1{capsu le} QD Gabapentin 100 MG Zolpidem Tartrate 5 MG Zolpidem Tartrate 5 MG No QD Zolpidem Tartrate 5 MG Combivent Respimat 20-100 MCG/ACT Combivent Respimat 20-100 MCG/ACT No Combivent Respimat 20-100 MCG/ACT Finasteride 5 MG Finasteride 5 MG No Finasterid e 5 MG Tamsulosin HCl 0.4 MG Tamsulosin HCl 0.4 MG No Tamsulosin HCl 0.4 MG Ezetimibe 10 MG Ezetimibe 10 MG No Ezetimibe 10 MG Ipratropium Meadow 0.02 % Ipratropium [place]ow 0.02 % No Ipratropiu m Meadow 0.02 % Cilostazol 100 MG Cilostazol 100 MG No Cilostazol 100 MG Zetia 10 MG Zetia 10 MG No 1{table t} QD Zetia 10 MG Proscar 5 MG Proscar 5 MG No 1{table t} QD Proscar 5 MG Combivent Respimat 20MCG /100 MCG Combivent Respimat 20MCG /100 MCG No 2{puffs } Combivent Respimat 20MCG /100 MCG Lisinopril- hydroCHLORO thiazide 10-12.5 MG Lisinopril- hydroCHLORO thiazide 10-12.5 MG No 1{table t} QD Lisinopril -hydroCHLO ROthiazide 10-12.5 MG Levocetiriz ine Dihydrochlo ride 5 MG Levocetiriz ine Dihydrochlo ride 5 MG No Levocetiri zine Dihydrochl oride 5 MG Ipratropium Meadow 0.02 % Ipratropium [place]ow 0.02 % No Ipratropiu m [place]ow 0.02 % tiZANidine HCl 4 MG tiZANidine HCl 4 MG No tiZANidine HCl 4 MG Lisinopril- hydroCHLORO thiazide 10-12.5 MG Lisinopril- hydroCHLORO thiazide 10-12.5 MG No 1{table t} QD Lisinopril -hydroCHLO ROthiazide 10-12.5 MG Proscar 5 MG Proscar 5 MG No 1{table t} QD Proscar 5 MG Ezetimibe 10 MG Ezetimibe 10 MG No Ezetimibe 10 MG Gabapentin 100 MG Gabapentin 100 MG No 1{capsu le} QD Gabapentin 100 MG Zolpidem Tartrate 5 MG Zolpidem Tartrate 5 MG No QD Zolpidem Tartrate 5 MG Diclofenac Sodium 1 % Diclofenac Sodium 1 % No Diclofenac Sodium 1 % HYDROcodone -Acetaminop hen 7.5-325 MG HYDROcodone -Acetaminop hen 7.5-325 MG No HYDROcodon e-Acetamin ophen 7.5-325 MG Combivent Respimat 20MCG /100 MCG Combivent Respimat 20MCG /100 MCG No 2{puffs } Combivent Respimat 20MCG /100 MCG Tamsulosin HCl 0.4 MG Tamsulosin HCl 0.4 MG No 2{capsu les} QD Tamsulosin HCl 0.4 MG Zetia 10 MG Zetia 10 MG No 1{table t} QD Zetia 10 MG Cilostazol 100 MG Cilostazol 100 MG No Cilostazol 100 MG amitriptyli ne amitriptyli ne No amitriptyl ine Fenofibrate 145 MG Fenofibrate 145 MG No 1{table t_with_ food} QD Fenofibrat e 145 MG Ipratropium Meadow 0.02 % Ipratropium [place]ow 0.02 % No Ipratropiu m [place]ow 0.02 % tiZANidine HCl 4 MG tiZANidine HCl 4 MG No tiZANidine HCl 4 MG Lisinopril- hydroCHLORO thiazide 10-12.5 MG Lisinopril- hydroCHLORO thiazide 10-12.5 MG No 1{table t} QD Lisinopril -hydroCHLO ROthiazide 10-12.5 MG Proscar 5 MG Proscar 5 MG No 1{table t} QD Proscar 5 MG Ezetimibe 10 MG Ezetimibe 10 MG No Ezetimibe 10 MG Gabapentin 100 MG Gabapentin 100 MG No 1{capsu le} QD Gabapentin 100 MG Zolpidem Tartrate 5 MG Zolpidem Tartrate 5 MG No QD Zolpidem Tartrate 5 MG Diclofenac Sodium 1 % Diclofenac Sodium 1 % No Diclofenac Sodium 1 % HYDROcodone -Acetaminop hen 7.5-325 MG HYDROcodone -Acetaminop hen 7.5-325 MG No HYDROcodon e-Acetamin ophen 7.5-325 MG Combivent Respimat 20MCG /100 MCG Combivent Respimat 20MCG /100 MCG No 2{puffs } Combivent Respimat 20MCG /100 MCG Tamsulosin HCl 0.4 MG Tamsulosin HCl 0.4 MG No 2{capsu les} QD Tamsulosin HCl 0.4 MG Zetia 10 MG Zetia 10 MG No 1{table t} QD Zetia 10 MG Cilostazol 100 MG Cilostazol 100 MG No Cilostazol 100 MG amitriptyli ne amitriptyli ne No amitriptyl ine Fenofibrate 145 MG Fenofibrate 145 MG No 1{table t_with_ food} QD Fenofibrat e 145 MG Ipratropium [place]ow 0.02 % Ipratropium [place]ow 0.02 % No Ipratropiu m [place]ow 0.02 % tiZANidine HCl 4 MG tiZANidine HCl 4 MG No tiZANidine HCl 4 MG Tamsulosin HCl 0.4 MG Tamsulosin HCl 0.4 MG No 2{capsu les} QD Tamsulosin HCl 0.4 MG amitriptyli ne amitriptyli ne No amitriptyl ine Proscar 5 MG Proscar 5 MG No 1{table t} QD Proscar 5 MG Zolpidem Tartrate 5 MG Zolpidem Tartrate 5 MG No QD Zolpidem Tartrate 5 MG Zetia 10 MG Zetia 10 MG No 1{table t} QD Zetia 10 MG Lisinopril- hydroCHLORO thiazide 10-12.5 MG Lisinopril- hydroCHLORO thiazide 10-12.5 MG No 1{table t} QD Lisinopril -hydroCHLO ROthiazide 10-12.5 MG Fenofibrate 145 MG Fenofibrate 145 MG No 1{table t_with_ food} QD Fenofibrat e 145 MG Combivent Respimat 20MCG /100 MCG Combivent Respimat 20MCG /100 MCG No 2{puffs } Combivent Respimat 20MCG /100 MCG Ezetimibe 10 MG Ezetimibe 10 MG No Ezetimibe 10 MG Diclofenac Sodium 1 % Diclofenac Sodium 1 % No Diclofenac Sodium 1 % Gabapentin 100 MG Gabapentin 100 MG No 1{capsu le} QD Gabapentin 100 MG HYDROcodone -Acetaminop hen 7.5-325 MG HYDROcodone -Acetaminop hen 7.5-325 MG No HYDROcodon e-Acetamin ophen 7.5-325 MG Cilostazol 100 MG Cilostazol 100 MG No Cilostazol 100 MG Ipratropium [place] 0.02 % Ipratropium [place] 0.02 % No Ipratropiu m [place] 0.02 % tiZANidine HCl 4 MG tiZANidine HCl 4 MG No tiZANidine HCl 4 MG Tamsulosin HCl 0.4 MG Tamsulosin HCl 0.4 MG No 2{capsu les} QD Tamsulosin HCl 0.4 MG amitriptyli ne amitriptyli ne No amitriptyl ine Proscar 5 MG Proscar 5 MG No 1{table t} QD Proscar 5 MG Zolpidem Tartrate 5 MG Zolpidem Tartrate 5 MG No QD Zolpidem Tartrate 5 MG Zetia 10 MG Zetia 10 MG No 1{table t} QD Zetia 10 MG Lisinopril- hydroCHLORO thiazide 10-12.5 MG Lisinopril- hydroCHLORO thiazide 10-12.5 MG No 1{table t} QD Lisinopril -hydroCHLO ROthiazide 10-12.5 MG Fenofibrate 145 MG Fenofibrate 145 MG No 1{table t_with_ food} QD Fenofibrat e 145 MG Combivent Respimat 20MCG /100 MCG Combivent Respimat 20MCG /100 MCG No 2{puffs } Combivent Respimat 20MCG /100 MCG Ezetimibe 10 MG Ezetimibe 10 MG No Ezetimibe 10 MG Diclofenac Sodium 1 % Diclofenac Sodium 1 % No Diclofenac Sodium 1 % Gabapentin 100 MG Gabapentin 100 MG No 1{capsu le} QD Gabapentin 100 MG HYDROcodone -Acetaminop hen 7.5-325 MG HYDROcodone -Acetaminop hen 7.5-325 MG No HYDROcodon e-Acetamin ophen 7.5-325 MG Cilostazol 100 MG Cilostazol 100 MG No Cilostazol 100 MG Proscar 5 MG Proscar 5 MG No 1{table t} QD Proscar 5 MG Ipratropium Meadow 0.02 % Ipratropium [place]ow 0.02 % No Ipratropiu m [place] 0.02 % amitriptyli ne amitriptyli ne No amitriptyl ine Tamsulosin HCl 0.4 MG Tamsulosin HCl 0.4 MG No 2{capsu les} QD Tamsulosin HCl 0.4 MG Lisinopril- hydroCHLORO thiazide 10-12.5 MG Lisinopril- hydroCHLORO thiazide 10-12.5 MG No Lisinopril -hydroCHLO ROthiazide 10-12.5 MG Fenofibrate 145 MG Fenofibrate 145 MG No 1{table t_with_ food} QD Fenofibrat e 145 MG Zetia 10 MG Zetia 10 MG No 1{table t} QD Zetia 10 MG HYDROcodone -Acetaminop hen 7.5-325 MG HYDROcodone -Acetaminop hen 7.5-325 MG No HYDROcodon e-Acetamin ophen 7.5-325 MG Zolpidem Tartrate 5 MG Zolpidem Tartrate 5 MG No QD Zolpidem Tartrate 5 MG Cilostazol 100 MG Cilostazol 100 MG No Cilostazol 100 MG Gabapentin 100 MG Gabapentin 100 MG No 1{capsu le} QD Gabapentin 100 MG Diclofenac Sodium 1 % Diclofenac Sodium 1 % No Diclofenac Sodium 1 % Combivent Respimat 20-100 MCG/ACT Combivent Respimat 20-100 MCG/ACT No Combivent Respimat 20-100 MCG/ACT Ezetimibe 10 MG Ezetimibe 10 MG No Ezetimibe 10 MG tiZANidine HCl 4 MG tiZANidine HCl 4 MG No tiZANidine HCl 4 MG Tamsulosin HCl 0.4 MG Tamsulosin HCl 0.4 MG No 2{capsu les} QD Tamsulosin HCl 0.4 MG Ipratropium [place] 0.02 % Ipratropium [place] 0.02 % No Ipratropiu m [place] 0.02 % Zolpidem Tartrate 5 MG Zolpidem Tartrate 5 MG No QD Zolpidem Tartrate 5 MG Zetia 10 MG Zetia 10 MG No 1{table t} QD Zetia 10 MG Lisinopril- hydroCHLORO thiazide 10-12.5 MG Lisinopril- hydroCHLORO thiazide 10-12.5 MG No Lisinopril -hydroCHLO ROthiazide 10-12.5 MG Fenofibrate 145 MG Fenofibrate 145 MG No 1{table t_with_ food} QD Fenofibrat e 145 MG Diclofenac Sodium 1 % Diclofenac Sodium 1 % No Diclofenac Sodium 1 % HYDROcodone -Acetaminop hen 7.5-325 MG HYDROcodone -Acetaminop hen 7.5-325 MG No HYDROcodon e-Acetamin ophen 7.5-325 MG Ezetimibe 10 MG Ezetimibe 10 MG No Ezetimibe 10 MG Finasteride 5 MG Finasteride 5 MG No Finasterid e 5 MG amitriptyli ne amitriptyli ne No amitriptyl ine Cilostazol 100 MG Cilostazol 100 MG No Cilostazol 100 MG Combivent Respimat 20-100 MCG/ACT Combivent Respimat 20-100 MCG/ACT No Combivent Respimat 20-100 MCG/ACT Gabapentin 100 MG Gabapentin 100 MG No 1{capsu le} QD Gabapentin 100 MG tiZANidine HCl 4 MG tiZANidine HCl 4 MG No tiZANidine HCl 4 MG Combivent Respimat 20-100 MCG/ACT Combivent Respimat 20-100 MCG/ACT No Combivent Respimat 20-100 MCG/ACT Diclofenac Sodium 1 % Diclofenac Sodium 1 % No Diclofenac Sodium 1 % Ipratropium [place] 0.02 % Ipratropium [place] 0.02 % No Ipratropiu m [place] 0.02 % HYDROcodone -Acetaminop hen 7.5-325 MG HYDROcodone -Acetaminop hen 7.5-325 MG No HYDROcodon e-Acetamin ophen 7.5-325 MG Combivent Respimat 20MCG /100 MCG Combivent Respimat 20MCG /100 MCG No 2{puffs } Combivent Respimat 20MCG /100 MCG Tamsulosin HCl 0.4 MG Tamsulosin HCl 0.4 MG No 2{capsu les} QD Tamsulosin HCl 0.4 MG Proscar 5 MG Proscar 5 MG No 1{table t} QD Proscar 5 MG Fenofibrate 145 MG Fenofibrate 145 MG No 1{table t_with_ food} QD Fenofibrat e 145 MG tiZANidine HCl 4 MG tiZANidine HCl 4 MG No tiZANidine HCl 4 MG amitriptyli ne amitriptyli ne No amitriptyl ine Gabapentin 100 MG Gabapentin 100 MG No 1{capsu le} QD Gabapentin 100 MG Cilostazol 100 MG Cilostazol 100 MG No Cilostazol 100 MG Ezetimibe 10 MG Ezetimibe 10 MG No Ezetimibe 10 MG Finasteride 5 MG Finasteride 5 MG No Finasterid e 5 MG Lisinopril- hydroCHLORO thiazide 10-12.5 MG Lisinopril- hydroCHLORO thiazide 10-12.5 MG No 1{table t} QD Lisinopril -hydroCHLO ROthiazide 10-12.5 MG Zetia 10 MG Zetia 10 MG No 1{table t} QD Zetia 10 MG Zolpidem Tartrate 5 MG Zolpidem Tartrate 5 MG No QD Zolpidem Tartrate 5 MG Lisinopril- hydroCHLORO thiazide 10-12.5 MG Lisinopril- hydroCHLORO thiazide 10-12.5 MG No Lisinopril -hydroCHLO ROthiazide 10-12.5 MG Combivent Respimat 20-100 MCG/ACT Combivent Respimat 20-100 MCG/ACT No Combivent Respimat 20-100 MCG/ACT Diclofenac Sodium 1 % Diclofenac Sodium 1 % No Diclofenac Sodium 1 % Levocetiriz ine Dihydrochlo ride 5 MG Levocetiriz ine Dihydrochlo ride 5 MG No Levocetiri zine Dihydrochl oride 5 MG HYDROcodone -Acetaminop hen 7.5-325 MG HYDROcodone -Acetaminop hen 7.5-325 MG No HYDROcodon e-Acetamin ophen 7.5-325 MG Gabapentin 100 MG Gabapentin 100 MG No 1{capsu le} QD Gabapentin 100 MG Combivent Respimat 20MCG /100 MCG Combivent Respimat 20MCG /100 MCG No 2{puffs } Combivent Respimat 20MCG /100 MCG Proscar 5 MG Proscar 5 MG No 1{table t} QD Proscar 5 MG Finasteride 5 MG Finasteride 5 MG No Finasterid e 5 MG Fenofibrate 145 MG Fenofibrate 145 MG No 1{table t_with_ food} QD Fenofibrat e 145 MG Ipratropium [place] 0.02 % Ipratropium [place] 0.02 % No Ipratropiu m [place] 0.02 % Lisinopril- hydroCHLORO thiazide 10-12.5 MG Lisinopril- hydroCHLORO thiazide 10-12.5 MG No Lisinopril -hydroCHLO ROthiazide 10-12.5 MG Zolpidem Tartrate 5 MG Zolpidem Tartrate 5 MG No QD Zolpidem Tartrate 5 MG tiZANidine HCl 4 MG tiZANidine HCl 4 MG No tiZANidine HCl 4 MG Ezetimibe 10 MG Ezetimibe 10 MG No Ezetimibe 10 MG amitriptyli ne amitriptyli ne No amitriptyl ine Zetia 10 MG Zetia 10 MG No 1{table t} QD Zetia 10 MG Tamsulosin HCl 0.4 MG Tamsulosin HCl 0.4 MG No Tamsulosin HCl 0.4 MG Cilostazol 100 MG Cilostazol 100 MG No Cilostazol 100 MG Lisinopril- hydroCHLORO thiazide 10-12.5 MG Lisinopril- hydroCHLORO thiazide 10-12.5 MG No 1{table t} QD Lisinopril -hydroCHLO ROthiazide 10-12.5 MG amitriptyli ne amitriptyli ne No amitriptyl ine tiZANidine HCl 4 MG tiZANidine HCl 4 MG No tiZANidine HCl 4 MG Combivent Respimat 20MCG /100 MCG Combivent Respimat 20MCG /100 MCG No 2{puffs } Combivent Respimat 20MCG /100 MCG Combivent Respimat 20-100 MCG/ACT Combivent Respimat 20-100 MCG/ACT No Combivent Respimat 20-100 MCG/ACT Finasteride 5 MG Finasteride 5 MG No Finasterid e 5 MG Gabapentin 100 MG Gabapentin 100 MG No 1{capsu le} QD Gabapentin 100 MG Zolpidem Tartrate 5 MG Zolpidem Tartrate 5 MG No QD Zolpidem Tartrate 5 MG Proscar 5 MG Proscar 5 MG No 1{table t} QD Proscar 5 MG Ipratropium [place] 0.02 % Ipratropium [place] 0.02 % No Ipratropiu m [place] 0.02 % HYDROcodone -Acetaminop hen 7.5-325 MG HYDROcodone -Acetaminop hen 7.5-325 MG No HYDROcodon e-Acetamin ophen 7.5-325 MG Fenofibrate 145 MG Fenofibrate 145 MG No 1{table t_with_ food} QD Fenofibrat e 145 MG Lisinopril- hydroCHLORO thiazide 10-12.5 MG Lisinopril- hydroCHLORO thiazide 10-12.5 MG No Lisinopril -hydroCHLO ROthiazide 10-12.5 MG Cilostazol 100 MG Cilostazol 100 MG No Cilostazol 100 MG Tamsulosin HCl 0.4 MG Tamsulosin HCl 0.4 MG No 2{capsu les} QD Tamsulosin HCl 0.4 MG Tamsulosin HCl 0.4 MG Tamsulosin HCl 0.4 MG No Tamsulosin HCl 0.4 MG Ezetimibe 10 MG Ezetimibe 10 MG No Ezetimibe 10 MG Diclofenac Sodium 1 % Diclofenac Sodium 1 % No Diclofenac Sodium 1 % Zetia 10 MG Zetia 10 MG No 1{table t} QD Zetia 10 MG Lisinopril- hydroCHLORO thiazide 10-12.5 MG Lisinopril- hydroCHLORO thiazide 10-12.5 MG No 1{table t} QD Lisinopril -hydroCHLO ROthiazide 10-12.5 MG amitriptyli ne amitriptyli ne No amitriptyl ine tiZANidine HCl 4 MG tiZANidine HCl 4 MG No tiZANidine HCl 4 MG Combivent Respimat 20MCG /100 MCG Combivent Respimat 20MCG /100 MCG No 2{puffs } Combivent Respimat 20MCG /100 MCG Combivent Respimat 20-100 MCG/ACT Combivent Respimat 20-100 MCG/ACT No Combivent Respimat 20-100 MCG/ACT Finasteride 5 MG Finasteride 5 MG No Finasterid e 5 MG Gabapentin 100 MG Gabapentin 100 MG No 1{capsu le} QD Gabapentin 100 MG Zolpidem Tartrate 5 MG Zolpidem Tartrate 5 MG No QD Zolpidem Tartrate 5 MG Proscar 5 MG Proscar 5 MG No 1{table t} QD Proscar 5 MG Ipratropium [place] 0.02 % Ipratropium [place] 0.02 % No Ipratropiu m [place] 0.02 % HYDROcodone -Acetaminop hen 7.5-325 MG HYDROcodone -Acetaminop hen 7.5-325 MG No HYDROcodon e-Acetamin ophen 7.5-325 MG Fenofibrate 145 MG Fenofibrate 145 MG No 1{table t_with_ food} QD Fenofibrat e 145 MG Lisinopril- hydroCHLORO thiazide 10-12.5 MG Lisinopril- hydroCHLORO thiazide 10-12.5 MG No Lisinopril -hydroCHLO ROthiazide 10-12.5 MG Cilostazol 100 MG Cilostazol 100 MG No Cilostazol 100 MG Tamsulosin HCl 0.4 MG Tamsulosin HCl 0.4 MG No 2{capsu les} QD Tamsulosin HCl 0.4 MG Tamsulosin HCl 0.4 MG Tamsulosin HCl 0.4 MG No Tamsulosin HCl 0.4 MG Ezetimibe 10 MG Ezetimibe 10 MG No Ezetimibe 10 MG Diclofenac Sodium 1 % Diclofenac Sodium 1 % No Diclofenac Sodium 1 % Zetia 10 MG Zetia 10 MG No 1{table t} QD Zetia 10 MG Tamsulosin HCl 0.4 MG Tamsulosin HCl 0.4 MG No 2{capsu les} QD Tamsulosin HCl 0.4 MG Fenofibrate 145 MG Fenofibrate 145 MG No 1{table t_with_ food} QD Fenofibrat e 145 MG HYDROcodone -Acetaminop hen 7.5-325 MG HYDROcodone -Acetaminop hen 7.5-325 MG No HYDROcodon e-Acetamin ophen 7.5-325 MG Lisinopril- hydroCHLORO thiazide 10-12.5 MG Lisinopril- hydroCHLORO thiazide 10-12.5 MG No Lisinopril -hydroCHLO ROthiazide 10-12.5 MG Diclofenac Sodium 1 % Diclofenac Sodium 1 % No Diclofenac Sodium 1 % amitriptyli ne amitriptyli ne No amitriptyl ine tiZANidine HCl 4 MG tiZANidine HCl 4 MG No tiZANidine HCl 4 MG Gabapentin 100 MG Gabapentin 100 MG No 1{capsu le} QD Gabapentin 100 MG Zolpidem Tartrate 5 MG Zolpidem Tartrate 5 MG No QD Zolpidem Tartrate 5 MG Combivent Respimat 20-100 MCG/ACT Combivent Respimat 20-100 MCG/ACT No Combivent Respimat 20-100 MCG/ACT Finasteride 5 MG Finasteride 5 MG No Finasterid e 5 MG Tamsulosin HCl 0.4 MG Tamsulosin HCl 0.4 MG No Tamsulosin HCl 0.4 MG Ezetimibe 10 MG Ezetimibe 10 MG No Ezetimibe 10 MG Ipratropium [place] 0.02 % Ipratropium [place] 0.02 % No Ipratropiu m [place] 0.02 % Cilostazol 100 MG Cilostazol 100 MG No Cilostazol 100 MG Zetia 10 MG Zetia 10 MG No 1{table t} QD Zetia 10 MG Proscar 5 MG Proscar 5 MG No 1{table t} QD Proscar 5 MG Combivent Respimat 20MCG /100 MCG Combivent Respimat 20MCG /100 MCG No 2{puffs } Combivent Respimat 20MCG /100 MCG Lisinopril- hydroCHLORO thiazide 10-12.5 MG Lisinopril- hydroCHLORO thiazide 10-12.5 MG No 1{table t} QD Lisinopril -hydroCHLO ROthiazide 10-12.5 MG Levocetiriz ine Dihydrochlo ride 5 MG Levocetiriz ine Dihydrochlo ride 5 MG No Levocetiri zine Dihydrochl oride 5 MG Gabapentin 100 MG Gabapentin 100 MG No 1{capsu le} QD Gabapentin 100 MG Cilostazol 100 MG Cilostazol 100 MG No Cilostazol 100 MG amitriptyli ne amitriptyli ne No amitriptyl ine HYDROcodone -Acetaminop hen 7.5-325 MG HYDROcodone -Acetaminop hen 7.5-325 MG No HYDROcodon e-Acetamin ophen 7.5-325 MG Ezetimibe 10 MG Ezetimibe 10 MG No Ezetimibe 10 MG Tamsulosin HCl 0.4 MG Tamsulosin HCl 0.4 MG No 2{capsu les} QD Tamsulosin HCl 0.4 MG Zetia 10 MG Zetia 10 MG No 1{table t} QD Zetia 10 MG Fenofibrate 145 MG Fenofibrate 145 MG No 1{table t_with_ food} QD Fenofibrat e 145 MG Combivent Respimat 20MCG /100 MCG Combivent Respimat 20MCG /100 MCG No 2{puffs } Combivent Respimat 20MCG /100 MCG Lisinopril- hydroCHLORO thiazide 10-12.5 MG Lisinopril- hydroCHLORO thiazide 10-12.5 MG No 1{table t} QD Lisinopril -hydroCHLO ROthiazide 10-12.5 MG Tamsulosin HCl 0.4 MG Tamsulosin HCl 0.4 MG No Tamsulosin HCl 0.4 MG Proscar 5 MG Proscar 5 MG No 1{table t} QD Proscar 5 MG Ipratropium [place] 0.02 % Ipratropium [place] 0.02 % No Ipratropiu m [place] 0.02 % Finasteride 5 MG Finasteride 5 MG No Finasterid e 5 MG Combivent Respimat 20-100 MCG/ACT Combivent Respimat 20-100 MCG/ACT No Combivent Respimat 20-100 MCG/ACT Lisinopril- hydroCHLORO thiazide 10-12.5 MG Lisinopril- hydroCHLORO thiazide 10-12.5 MG No Lisinopril -hydroCHLO ROthiazide 10-12.5 MG Levocetiriz ine Dihydrochlo ride 5 MG Levocetiriz ine Dihydrochlo ride 5 MG No Levocetiri zine Dihydrochl oride 5 MG Diclofenac Sodium 1 % Diclofenac Sodium 1 % No Diclofenac Sodium 1 % tiZANidine HCl 4 MG tiZANidine HCl 4 MG No tiZANidine HCl 4 MG Gabapentin 100 MG Gabapentin 100 MG No 1{capsu le} QD Gabapentin 100 MG tiZANidine HCl 4 MG tiZANidine HCl 4 MG No tiZANidine HCl 4 MG Combivent Respimat 20-100 MCG/ACT Combivent Respimat 20-100 MCG/ACT No Combivent Respimat 20-100 MCG/ACT Cilostazol 100 MG Cilostazol 100 MG No Cilostazol 100 MG Finasteride 5 MG Finasteride 5 MG No Finasterid e 5 MG Nebulizer - Nebulizer - No Ne bulizer - Zetia 10 MG Zetia 10 MG No 1{table t} QD Zetia 10 MG Diclofenac Sodium 1 % Diclofenac Sodium 1 % No Diclofenac Sodium 1 % Lisinopril- hydroCHLORO thiazide 10-12.5 MG Lisinopril- hydroCHLORO thiazide 10-12.5 MG No Lisinopril -hydroCHLO ROthiazide 10-12.5 MG DULoxetine HCl 30 MG DULoxetine HCl 30 MG No DULoxetine HCl 30 MG Proscar 5 MG Proscar 5 MG No 1{table t} QD Proscar 5 MG HYDROcodone -Acetaminop hen 7.5-325 MG HYDROcodone -Acetaminop hen 7.5-325 MG No HYDROcodon e-Acetamin ophen 7.5-325 MG Fenofibrate 145 MG Fenofibrate 145 MG No 1{table t_with_ food} QD Fenofibrat e 145 MG Ipratropium [place] 0.02 % Ipratropium [place] 0.02 % No Ipratropiu m [place] 0.02 % Tamsulosin HCl 0.4 MG Tamsulosin HCl 0.4 MG No 2{capsu les} QD Tamsulosin HCl 0.4 MG Ezetimibe 10 MG Ezetimibe 10 MG No Ezetimibe 10 MG Levocetiriz ine Dihydrochlo ride 5 MG Levocetiriz ine Dihydrochlo ride 5 MG No Levocetiri zine Dihydrochl oride 5 MG Combivent Respimat 20MCG /100 MCG Combivent Respimat 20MCG /100 MCG No 2{puffs } Combivent Respimat 20MCG /100 MCG Lisinopril- hydroCHLORO thiazide 10-12.5 MG Lisinopril- hydroCHLORO thiazide 10-12.5 MG No 1{table t} QD Lisinopril -hydroCHLO ROthiazide 10-12.5 MG Tamsulosin HCl 0.4 MG Tamsulosin HCl 0.4 MG No Tamsulosin HCl 0.4 MG amitriptyli ne amitriptyli ne No amitriptyl ine Fenofibrate 145 MG Fenofibrate 145 MG No 1{table t} QD Fenofibrat e 145 MG HYDROcodone -Acetaminop hen 7.5-325 MG HYDROcodone -Acetaminop hen 7.5-325 MG No HYDROcodon e-Acetamin ophen 7.5-325 MG Levocetiriz ine Dihydrochlo ride 5 MG Levocetiriz ine Dihydrochlo ride 5 MG No Levocetiri zine Dihydrochl oride 5 MG Lisinopril- hydroCHLORO thiazide 10-12.5 MG Lisinopril- hydroCHLORO thiazide 10-12.5 MG No 1{table t} QD Lisinopril -hydroCHLO ROthiazide 10-12.5 MG Tamsulosin HCl 0.4 MG Tamsulosin HCl 0.4 MG No 1{capsu le} QD Tamsulosin HCl 0.4 MG tiZANidine HCl 4 MG tiZANidine HCl 4 MG No tiZANidine HCl 4 MG Proscar 5 MG Proscar 5 MG No 1{table t} QD Proscar 5 MG Diclofenac Sodium 1 % Diclofenac Sodium 1 % No Diclofenac Sodium 1 % Tamsulosin HCl 0.4 MG Tamsulosin HCl 0.4 MG No 2{capsu les} QD Tamsulosin HCl 0.4 MG Levocetiriz ine Dihydrochlo ride 5 MG Levocetiriz ine Dihydrochlo ride 5 MG No Levocetiri zine Dihydrochl oride 5 MG Nebulizer - Nebulizer - No Ne bulizer - Ezetimibe 10 MG Ezetimibe 10 MG No 1{table t} QD Ezetimibe 10 MG Combivent Respimat 20-100 MCG/ACT Combivent Respimat 20-100 MCG/ACT No Combivent Respimat 20-100 MCG/ACT Combivent Respimat 20MCG /100 MCG Combivent Respimat 20MCG /100 MCG No 2{puffs } Combivent Respimat 20MCG /100 MCG Fenofibrate 145 MG Fenofibrate 145 MG No 1{table t_with_ food} QD Fenofibrat e 145 MG Cilostazol 100 MG Cilostazol 100 MG No Cilostazol 100 MG Ipratropium [place] 0.02 % Ipratropium [place] 0.02 % No Ipratropiu m [place] 0.02 % Lisinopril- hydroCHLORO thiazide 10-12.5 MG Lisinopril- hydroCHLORO thiazide 10-12.5 MG No 1{table t} QD Lisinopril -hydroCHLO ROthiazide 10-12.5 MG Zetia 10 MG Zetia 10 MG No 1{table t} QD Zetia 10 MG Gabapentin 100 MG Gabapentin 100 MG No 1{capsu le} QD Gabapentin 100 MG Finasteride 5 MG Finasteride 5 MG No Finasterid e 5 MG Fenofibrate 145 MG Fenofibrate 145 MG No 1{table t} QD Fenofibrat e 145 MG HYDROcodone -Acetaminop hen 7.5-325 MG HYDROcodone -Acetaminop hen 7.5-325 MG No HYDROcodon e-Acetamin ophen 7.5-325 MG Levocetiriz ine Dihydrochlo ride 5 MG Levocetiriz ine Dihydrochlo ride 5 MG No Levocetiri zine Dihydrochl oride 5 MG Lisinopril- hydroCHLORO thiazide 10-12.5 MG Lisinopril- hydroCHLORO thiazide 10-12.5 MG No 1{table t} QD Lisinopril -hydroCHLO ROthiazide 10-12.5 MG Tamsulosin HCl 0.4 MG Tamsulosin HCl 0.4 MG No 1{capsu le} QD Tamsulosin HCl 0.4 MG tiZANidine HCl 4 MG tiZANidine HCl 4 MG No tiZANidine HCl 4 MG Proscar 5 MG Proscar 5 MG No 1{table t} QD Proscar 5 MG Diclofenac Sodium 1 % Diclofenac Sodium 1 % No Diclofenac Sodium 1 % Tamsulosin HCl 0.4 MG Tamsulosin HCl 0.4 MG No 2{capsu les} QD Tamsulosin HCl 0.4 MG Levocetiriz ine Dihydrochlo ride 5 MG Levocetiriz ine Dihydrochlo ride 5 MG No Levocetiri zine Dihydrochl oride 5 MG Nebulizer - Nebulizer - No Ne bulizer - Ezetimibe 10 MG Ezetimibe 10 MG No 1{table t} QD Ezetimibe 10 MG Combivent Respimat 20-100 MCG/ACT Combivent Respimat 20-100 MCG/ACT No Combivent Respimat 20-100 MCG/ACT Combivent Respimat 20MCG /100 MCG Combivent Respimat 20MCG /100 MCG No 2{puffs } Combivent Respimat 20MCG /100 MCG Fenofibrate 145 MG Fenofibrate 145 MG No 1{table t_with_ food} QD Fenofibrat e 145 MG Cilostazol 100 MG Cilostazol 100 MG No Cilostazol 100 MG Ipratropium [place] 0.02 % Ipratropium [place] 0.02 % No Ipratropiu m [place] 0.02 % Lisinopril- hydroCHLORO thiazide 10-12.5 MG Lisinopril- hydroCHLORO thiazide 10-12.5 MG No 1{table t} QD Lisinopril -hydroCHLO ROthiazide 10-12.5 MG Zetia 10 MG Zetia 10 MG No 1{table t} QD Zetia 10 MG Gabapentin 100 MG Gabapentin 100 MG No 1{capsu le} QD Gabapentin 100 MG Finasteride 5 MG Finasteride 5 MG No Finasterid e 5 MG Fenofibrate 145 MG Fenofibrate 145 MG No 1{table t} QD Fenofibrat e 145 MG HYDROcodone -Acetaminop hen 7.5-325 MG HYDROcodone -Acetaminop hen 7.5-325 MG No HYDROcodon e-Acetamin ophen 7.5-325 MG Levocetiriz ine Dihydrochlo ride 5 MG Levocetiriz ine Dihydrochlo ride 5 MG No Levocetiri zine Dihydrochl oride 5 MG Lisinopril- hydroCHLORO thiazide 10-12.5 MG Lisinopril- hydroCHLORO thiazide 10-12.5 MG No 1{table t} QD Lisinopril -hydroCHLO ROthiazide 10-12.5 MG Tamsulosin HCl 0.4 MG Tamsulosin HCl 0.4 MG No 1{capsu le} QD Tamsulosin HCl 0.4 MG tiZANidine HCl 4 MG tiZANidine HCl 4 MG No tiZANidine HCl 4 MG Proscar 5 MG Proscar 5 MG No 1{table t} QD Proscar 5 MG Diclofenac Sodium 1 % Diclofenac Sodium 1 % No Diclofenac Sodium 1 % Tamsulosin HCl 0.4 MG Tamsulosin HCl 0.4 MG No 2{capsu les} QD Tamsulosin HCl 0.4 MG Levocetiriz ine Dihydrochlo ride 5 MG Levocetiriz ine Dihydrochlo ride 5 MG No Levocetiri zine Dihydrochl oride 5 MG Nebulizer - Nebulizer - No Ne bulizer - Ezetimibe 10 MG Ezetimibe 10 MG No 1{table t} QD Ezetimibe 10 MG Combivent Respimat 20-100 MCG/ACT Combivent Respimat 20-100 MCG/ACT No Combivent Respimat 20-100 MCG/ACT Combivent Respimat 20MCG /100 MCG Combivent Respimat 20MCG /100 MCG No 2{puffs } Combivent Respimat 20MCG /100 MCG Fenofibrate 145 MG Fenofibrate 145 MG No 1{table t_with_ food} QD Fenofibrat e 145 MG Cilostazol 100 MG Cilostazol 100 MG No Cilostazol 100 MG Ipratropium [place] 0.02 % Ipratropium [place] 0.02 % No Ipratropiu m [place] 0.02 % Lisinopril- hydroCHLORO thiazide 10-12.5 MG Lisinopril- hydroCHLORO thiazide 10-12.5 MG No 1{table t} QD Lisinopril -hydroCHLO ROthiazide 10-12.5 MG Zetia 10 MG Zetia 10 MG No 1{table t} QD Zetia 10 MG Gabapentin 100 MG Gabapentin 100 MG No 1{capsu le} QD Gabapentin 100 MG Finasteride 5 MG Finasteride 5 MG No Finasterid e 5 MG Lisinopril- hydroCHLORO thiazide 10-12.5 MG Lisinopril- hydroCHLORO thiazide 10-12.5 MG No 1{table t} QD Lisinopril -hydroCHLO ROthiazide 10-12.5 MG Fenofibrate 145 MG Fenofibrate 145 MG No 1{table t} QD Fenofibrat e 145 MG HYDROcodone -Acetaminop hen 7.5-325 MG HYDROcodone -Acetaminop hen 7.5-325 MG No HYDROcodon e-Acetamin ophen 7.5-325 MG Levocetiriz ine Dihydrochlo ride 5 MG Levocetiriz ine Dihydrochlo ride 5 MG No Levocetiri zine Dihydrochl oride 5 MG Lisinopril- hydroCHLORO thiazide 10-12.5 MG Lisinopril- hydroCHLORO thiazide 10-12.5 MG No 1{table t} QD Lisinopril -hydroCHLO ROthiazide 10-12.5 MG Tamsulosin HCl 0.4 MG Tamsulosin HCl 0.4 MG No 1{capsu le} QD Tamsulosin HCl 0.4 MG tiZANidine HCl 4 MG tiZANidine HCl 4 MG No tiZANidine HCl 4 MG Proscar 5 MG Proscar 5 MG No 1{table t} QD Proscar 5 MG Diclofenac Sodium 1 % Diclofenac Sodium 1 % No Diclofenac Sodium 1 % Tamsulosin HCl 0.4 MG Tamsulosin HCl 0.4 MG No 2{capsu les} QD Tamsulosin HCl 0.4 MG Levocetiriz ine Dihydrochlo ride 5 MG Levocetiriz ine Dihydrochlo ride 5 MG No Levocetiri zine Dihydrochl oride 5 MG amitriptyli ne amitriptyli ne No amitriptyl ine Nebulizer - Nebulizer - No Ne bulizer - Ezetimibe 10 MG Ezetimibe 10 MG No 1{table t} QD Ezetimibe 10 MG Combivent Respimat 20-100 MCG/ACT Combivent Respimat 20-100 MCG/ACT No Combivent Respimat 20-100 MCG/ACT Combivent Respimat 20MCG /100 MCG Combivent Respimat 20MCG /100 MCG No 2{puffs } Combivent Respimat 20MCG /100 MCG Fenofibrate 145 MG Fenofibrate 145 MG No 1{table t_with_ food} QD Fenofibrat e 145 MG Cilostazol 100 MG Cilostazol 100 MG No Cilostazol 100 MG Ipratropium [place] 0.02 % Ipratropium [place] 0.02 % No Ipratropiu m [place] 0.02 % Lisinopril- hydroCHLORO thiazide 10-12.5 MG Lisinopril- hydroCHLORO thiazide 10-12.5 MG No 1{table t} QD Lisinopril -hydroCHLO ROthiazide 10-12.5 MG tiZANidine HCl 4 MG tiZANidine HCl 4 MG No tiZANidine HCl 4 MG Zetia 10 MG Zetia 10 MG No 1{table t} QD Zetia 10 MG Gabapentin 100 MG Gabapentin 100 MG No 1{capsu le} QD Gabapentin 100 MG Finasteride 5 MG Finasteride 5 MG No Finasterid e 5 MG Combivent Respimat 20MCG /100 MCG Combivent Respimat 20MCG /100 MCG No 2{puffs } Combivent Respimat 20MCG /100 MCG Fenofibrate 145 MG Fenofibrate 145 MG No 1{table t} QD Fenofibrat e 145 MG HYDROcodone -Acetaminop hen 7.5-325 MG HYDROcodone -Acetaminop hen 7.5-325 MG No HYDROcodon e-Acetamin ophen 7.5-325 MG Levocetiriz ine Dihydrochlo ride 5 MG Levocetiriz ine Dihydrochlo ride 5 MG No Levocetiri zine Dihydrochl oride 5 MG Combivent Respimat 20-100 MCG/ACT Combivent Respimat 20-100 MCG/ACT No Combivent Respimat 20-100 MCG/ACT Lisinopril- hydroCHLORO thiazide 10-12.5 MG Lisinopril- hydroCHLORO thiazide 10-12.5 MG No 1{table t} QD Lisinopril -hydroCHLO ROthiazide 10-12.5 MG Tamsulosin HCl 0.4 MG Tamsulosin HCl 0.4 MG No 1{capsu le} QD Tamsulosin HCl 0.4 MG tiZANidine HCl 4 MG tiZANidine HCl 4 MG No tiZANidine HCl 4 MG Proscar 5 MG Proscar 5 MG No 1{table t} QD Proscar 5 MG Diclofenac Sodium 1 % Diclofenac Sodium 1 % No Diclofenac Sodium 1 % Tamsulosin HCl 0.4 MG Tamsulosin HCl 0.4 MG No 2{capsu les} QD Tamsulosin HCl 0.4 MG Levocetiriz ine Dihydrochlo ride 5 MG Levocetiriz ine Dihydrochlo ride 5 MG No Levocetiri zine Dihydrochl oride 5 MG Nebulizer - Nebulizer - No Ne bulizer - Ezetimibe 10 MG Ezetimibe 10 MG No 1{table t} QD Ezetimibe 10 MG Combivent Respimat 20-100 MCG/ACT Combivent Respimat 20-100 MCG/ACT No Combivent Respimat 20-100 MCG/ACT Finasteride 5 MG Finasteride 5 MG No Finasterid e 5 MG Combivent Respimat 20MCG /100 MCG Combivent Respimat 20MCG /100 MCG No 2{puffs } Combivent Respimat 20MCG /100 MCG Fenofibrate 145 MG Fenofibrate 145 MG No 1{table t_with_ food} QD Fenofibrat e 145 MG Cilostazol 100 MG Cilostazol 100 MG No Cilostazol 100 MG Ipratropium [place] 0.02 % Ipratropium [place] 0.02 % No Ipratropiu m [place] 0.02 % Lisinopril- hydroCHLORO thiazide 10-12.5 MG Lisinopril- hydroCHLORO thiazide 10-12.5 MG No 1{table t} QD Lisinopril -hydroCHLO ROthiazide 10-12.5 MG Zetia 10 MG Zetia 10 MG No 1{table t} QD Zetia 10 MG Gabapentin 100 MG Gabapentin 100 MG No 1{capsu le} QD Gabapentin 100 MG Gabapentin 100 MG Gabapentin 100 MG No 1{capsu le} QD Gabapentin 100 MG Finasteride 5 MG Finasteride 5 MG No Finasterid e 5 MG Fenofibrate 145 MG Fenofibrate 145 MG No 1{table t} QD Fenofibrat e 145 MG HYDROcodone -Acetaminop hen 7.5-325 MG HYDROcodone -Acetaminop hen 7.5-325 MG No HYDROcodon e-Acetamin ophen 7.5-325 MG Levocetiriz ine Dihydrochlo ride 5 MG Levocetiriz ine Dihydrochlo ride 5 MG No Levocetiri zine Dihydrochl oride 5 MG Lisinopril- hydroCHLORO thiazide 10-12.5 MG Lisinopril- hydroCHLORO thiazide 10-12.5 MG No 1{table t} QD Lisinopril -hydroCHLO ROthiazide 10-12.5 MG Tamsulosin HCl 0.4 MG Tamsulosin HCl 0.4 MG No 1{capsu le} QD Tamsulosin HCl 0.4 MG tiZANidine HCl 4 MG tiZANidine HCl 4 MG No tiZANidine HCl 4 MG Proscar 5 MG Proscar 5 MG No 1{table t} QD Proscar 5 MG Diclofenac Sodium 1 % Diclofenac Sodium 1 % No Diclofenac Sodium 1 % Tamsulosin HCl 0.4 MG Tamsulosin HCl 0.4 MG No 2{capsu les} QD Tamsulosin HCl 0.4 MG Levocetiriz ine Dihydrochlo ride 5 MG Levocetiriz ine Dihydrochlo ride 5 MG No Levocetiri zine Dihydrochl oride 5 MG Nebulizer - Nebulizer - No Ne bulizer - Ezetimibe 10 MG Ezetimibe 10 MG No 1{table t} QD Ezetimibe 10 MG Combivent Respimat 20-100 MCG/ACT Combivent Respimat 20-100 MCG/ACT No Combivent Respimat 20-100 MCG/ACT Zolpidem Tartrate 5 MG Zolpidem Tartrate 5 MG No QD Zolpidem Tartrate 5 MG Combivent Respimat 20MCG /100 MCG Combivent Respimat 20MCG /100 MCG No 2{puffs } Combivent Respimat 20MCG /100 MCG Fenofibrate 145 MG Fenofibrate 145 MG No 1{table t_with_ food} QD Fenofibrat e 145 MG Cilostazol 100 MG Cilostazol 100 MG No Cilostazol 100 MG Ipratropium [place] 0.02 % Ipratropium [place] 0.02 % No Ipratropiu m [place] 0.02 % Lisinopril- hydroCHLORO thiazide 10-12.5 MG Lisinopril- hydroCHLORO thiazide 10-12.5 MG No 1{table t} QD Lisinopril -hydroCHLO ROthiazide 10-12.5 MG Zetia 10 MG Zetia 10 MG No 1{table t} QD Zetia 10 MG Gabapentin 100 MG Gabapentin 100 MG No 1{capsu le} QD Gabapentin 100 MG Proscar 5 MG Proscar 5 MG No 1{table t} QD Proscar 5 MG Finasteride 5 MG Finasteride 5 MG No Finasterid e 5 MG Ipratropium [place] 0.02 % Ipratropium [place] 0.02 % No Ipratropiu m [place] 0.02 % HYDROcodone -Acetaminop hen 7.5-325 MG HYDROcodone -Acetaminop hen 7.5-325 MG No HYDROcodon e-Acetamin ophen 7.5-325 MG Fenofibrate 145 MG Fenofibrate 145 MG No 1{table t} QD Fenofibrat e 145 MG HYDROcodone -Acetaminop hen 7.5-325 MG HYDROcodone -Acetaminop hen 7.5-325 MG No HYDROcodon e-Acetamin ophen 7.5-325 MG Levocetiriz ine Dihydrochlo ride 5 MG Levocetiriz ine Dihydrochlo ride 5 MG No Levocetiri zine Dihydrochl oride 5 MG Lisinopril- hydroCHLORO thiazide 10-12.5 MG Lisinopril- hydroCHLORO thiazide 10-12.5 MG No 1{table t} QD Lisinopril -hydroCHLO ROthiazide 10-12.5 MG Tamsulosin HCl 0.4 MG Tamsulosin HCl 0.4 MG No 1{capsu le} QD Tamsulosin HCl 0.4 MG tiZANidine HCl 4 MG tiZANidine HCl 4 MG No tiZANidine HCl 4 MG Proscar 5 MG Proscar 5 MG No 1{table t} QD Proscar 5 MG Fenofibrate 145 MG Fenofibrate 145 MG No 1{table t_with_ food} QD Fenofibrat e 145 MG Diclofenac Sodium 1 % Diclofenac Sodium 1 % No Diclofenac Sodium 1 % Tamsulosin HCl 0.4 MG Tamsulosin HCl 0.4 MG No 2{capsu les} QD Tamsulosin HCl 0.4 MG Levocetiriz ine Dihydrochlo ride 5 MG Levocetiriz ine Dihydrochlo ride 5 MG No Levocetiri zine Dihydrochl oride 5 MG Nebulizer - Nebulizer - No Ne bulizer - Ezetimibe 10 MG Ezetimibe 10 MG No 1{table t} QD Ezetimibe 10 MG Combivent Respimat 20-100 MCG/ACT Combivent Respimat 20-100 MCG/ACT No Combivent Respimat 20-100 MCG/ACT Combivent Respimat 20MCG /100 MCG Combivent Respimat 20MCG /100 MCG No 2{puffs } Combivent Respimat 20MCG /100 MCG Fenofibrate 145 MG Fenofibrate 145 MG No 1{table t_with_ food} QD Fenofibrat e 145 MG Lisinopril- hydroCHLORO thiazide 10-12.5 MG Lisinopril- hydroCHLORO thiazide 10-12.5 MG No Lisinopril -hydroCHLO ROthiazide 10-12.5 MG Cilostazol 100 MG Cilostazol 100 MG No Cilostazol 100 MG Ipratropium Meadow 0.02 % Ipratropium Meadow 0.02 % No Ipratropiu m Meadow 0.02 % Lisinopril- hydroCHLORO thiazide 10-12.5 MG Lisinopril- hydroCHLORO thiazide 10-12.5 MG No 1{table t} QD Lisinopril -hydroCHLO ROthiazide 10-12.5 MG Zetia 10 MG Zetia 10 MG No 1{table t} QD Zetia 10 MG Gabapentin 100 MG Gabapentin 100 MG No 1{capsu le} QD Gabapentin 100 MG Finasteride 5 MG Finasteride 5 MG No Finasterid e 5 MG Cilostazol 100 MG Cilostazol 100 MG No Cilostazol 100 MG Tamsulosin HCl 0.4 MG Tamsulosin HCl 0.4 MG No 2{capsu les} QD Tamsulosin HCl 0.4 MG Tamsulosin HCl 0.4 MG Tamsulosin HCl 0.4 MG No Tamsulosin HCl 0.4 MG Fenofibrate 145 MG Fenofibrate 145 MG No 1{table t} QD Fenofibrat e 145 MG HYDROcodone -Acetaminop hen 7.5-325 MG HYDROcodone -Acetaminop hen 7.5-325 MG No HYDROcodon e-Acetamin ophen 7.5-325 MG Levocetiriz ine Dihydrochlo ride 5 MG Levocetiriz ine Dihydrochlo ride 5 MG No Levocetiri zine Dihydrochl oride 5 MG Lisinopril- hydroCHLORO thiazide 10-12.5 MG Lisinopril- hydroCHLORO thiazide 10-12.5 MG No 1{table t} QD Lisinopril -hydroCHLO ROthiazide 10-12.5 MG Tamsulosin HCl 0.4 MG Tamsulosin HCl 0.4 MG No 1{capsu le} QD Tamsulosin HCl 0.4 MG tiZANidine HCl 4 MG tiZANidine HCl 4 MG No tiZANidine HCl 4 MG Proscar 5 MG Proscar 5 MG No 1{table t} QD Proscar 5 MG Diclofenac Sodium 1 % Diclofenac Sodium 1 % No Diclofenac Sodium 1 % Tamsulosin HCl 0.4 MG Tamsulosin HCl 0.4 MG No 2{capsu les} QD Tamsulosin HCl 0.4 MG Levocetiriz ine Dihydrochlo ride 5 MG Levocetiriz ine Dihydrochlo ride 5 MG No Levocetiri zine Dihydrochl oride 5 MG Ezetimibe 10 MG Ezetimibe 10 MG No Ezetimibe 10 MG Nebulizer - Nebulizer - No Ne bulizer - Ezetimibe 10 MG Ezetimibe 10 MG No 1{table t} QD Ezetimibe 10 MG Combivent Respimat 20-100 MCG/ACT Combivent Respimat 20-100 MCG/ACT No Combivent Respimat 20-100 MCG/ACT Combivent Respimat 20MCG /100 MCG Combivent Respimat 20MCG /100 MCG No 2{puffs } Combivent Respimat 20MCG /100 MCG Fenofibrate 145 MG Fenofibrate 145 MG No 1{table t_with_ food} QD Fenofibrat e 145 MG Cilostazol 100 MG Cilostazol 100 MG No Cilostazol 100 MG Ipratropium Meadow 0.02 % Ipratropium Meadow 0.02 % No Ipratropiu m [place] 0.02 % Lisinopril- hydroCHLORO thiazide 10-12.5 MG Lisinopril- hydroCHLORO thiazide 10-12.5 MG No 1{table t} QD Lisinopril -hydroCHLO ROthiazide 10-12.5 MG Diclofenac Sodium 1 % Diclofenac Sodium 1 % No Diclofenac Sodium 1 % Zetia 10 MG Zetia 10 MG No 1{table t} QD Zetia 10 MG Gabapentin 100 MG Gabapentin 100 MG No 1{capsu le} QD Gabapentin 100 MG Finasteride 5 MG Finasteride 5 MG No Finasterid e 5 MG Zetia 10 MG Zetia 10 MG No 1{table t} QD Zetia 10 MG Levocetiriz ine Dihydrochlo ride 5 MG Levocetiriz ine Dihydrochlo ride 5 MG 09-02 00:00 :00 No Levocetiri zine Dihydrochl oride 5 MG Levocetiriz ine Dihydrochlo ride 5 MG Levocetiriz ine Dihydrochlo ride 5 MG 09-02 00:00 :00 No Levocetiri zine Dihydrochl oride 5 MG Levocetiriz ine Dihydrochlo ride 5 MG Levocetiriz ine Dihydrochlo ride 5 MG 09-02 00:00 :00 No Levocetiri zine Dihydrochl oride 5 MG Combivent Respimat Combivent Respimat 10-18 00:00 :00 No Won Barriga 2 puffs [facility] Vital Signs Vital Name Observation Time Observation Value Comments S ource height 2023-05-24 10:50:00 74 [in_i] Commo n [facility] weight 2023-05-24 10:50:00 190.0 [lb_av] Co mmon [facility] temperature 2023-05-24 10:50:00 96.7 [degF] Com mon [facility] bmi 2023-05-24 10:50:00 24.39 kg/m2 Comm on [facility] oximetry 2023-05-24 10:50:00 97 % Commo n [facility] respiratory rate 2023-05-24 10:50:00 17 /min Common [facility] blood pressure systolic 2023-05-24 10:50:00 117 mm[Hg] [facility] blood pressure diastolic 2023-05-24 10:50:00 68 mm[Hg] Common [facility] height 2023-01-26 09:40:00 74 [in_i] Commo n [facility] weight 2023-01-26 09:40:00 193 [lb_av] Comm on [facility] temperature 2023-01-26 09:40:00 96.1 [degF] Com [facility] bmi 2023-01-26 09:40:00 24.78 kg/m2 Comm on [facility] oximetry 2023-01-26 09:40:00 98 % Commo n [facility] respiratory rate 2023-01-26 09:40:00 16 /min [facility] blood pressure systolic 2023-01-26 09:40:00 129 mm[Hg] Common [facility] blood pressure diastolic 2023-01-26 09:40:00 71 mm[Hg] Common [facility] height 2023-01-26 09:50:00 74 [in_i] Commo n [facility] weight 2023-01-26 09:50:00 193 [lb_av] Comm on [facility] temperature 2023-01-26 09:50:00 96.1 [degF] Com mon [facility] bmi 2023-01-26 09:50:00 24.78 kg/m2 Comm on [facility] oximetry 2023-01-26 09:50:00 98 % Commo n [facility] respiratory rate 2023-01-26 09:50:00 16 /min [facility] blood pressure systolic 2023-01-26 09:50:00 129 mm[Hg] Common [facility] blood pressure diastolic 2023-01-26 09:50:00 71 mm[Hg] Common [facility] height 2023-01-01 15:40:00 74 [in_i] Commo n [facility] weight 2023-01-01 15:40:00 195.0 [lb_av] Co [facility] temperature 2023-01-01 15:40:00 97.7 [degF] Com [facility] bmi 2023-01-01 15:40:00 25.03 kg/m2 Comm on [facility] oximetry 2023-01-01 15:40:00 95 % Commo n [facility] respiratory rate 2023-01-01 15:40:00 18 /min [facility] blood pressure systolic 2023-01-01 15:40:00 131 mm[Hg] Common [facility] blood pressure diastolic 2023-01-01 15:40:00 65 mm[Hg] [facility] height 2022-10-26 08:40:00 74 [in_i] Commo n [facility] weight 2022-10-26 08:40:00 197.1 [lb_av] Co [facility] temperature 2022-10-26 08:40:00 97.2 [degF] Com [facility] bmi 2022-10-26 08:40:00 25.3 kg/m2 Commo n [facility] oximetry 2022-10-26 08:40:00 97 % Commo n [facility] respiratory rate 2022-10-26 08:40:00 17 /min Common [facility] blood pressure systolic 2022-10-26 08:40:00 134 mm[Hg] Common [facility] blood pressure diastolic 2022-10-26 08:40:00 72 mm[Hg] Common [facility] height 2022-08-24 13:10:00 74 [in_i] Commo n [facility] weight 2022-08-24 13:10:00 202 [lb_av] Comm on [facility] temperature 2022-08-24 13:10:00 97.8 [degF] Com mon [facility] bmi 2022-08-24 13:10:00 25.93 kg/m2 Comm on [facility] oximetry 2022-08-24 13:10:00 93 % Commo n [facility] respiratory rate 2022-08-24 13:10:00 18 /min Common [facility] blood pressure systolic 2022-08-24 13:10:00 101 mm[Hg] Common [facility] blood pressure diastolic 2022-08-24 13:10:00 67 mm[Hg] Common [facility] height 2022-06-04 11:30:00 74 [in_i] Commo n [facility] weight 2022-06-04 11:30:00 200 [lb_av] Comm on [facility] temperature 2022-06-04 11:30:00 98 [degF] Comm on [facility] bmi 2022-06-04 11:30:00 25.68 kg/m2 Comm on [facility] blood pressure systolic 2022-06-04 11:30:00 132 mm[Hg] Common [facility] blood pressure diastolic 2022-06-04 11:30:00 70 mm[Hg] Common [facility] height 2022-03-10 08:50:00 74 [in_i] Commo n [facility] weight 2022-03-10 08:50:00 200.0 [lb_av] Co mmon [facility] temperature 2022-03-10 08:50:00 97.5 [degF] Com mon [facility] bmi 2022-03-10 08:50:00 25.68 kg/m2 Comm on [facility] oximetry 2022-03-10 08:50:00 99 % Commo n [facility] respiratory rate 2022-03-10 08:50:00 18 /min Common [facility] blood pressure systolic 2022-03-10 08:50:00 137 mm[Hg] Common [facility] blood pressure diastolic 2022-03-10 08:50:00 65 mm[Hg] Common [facility] height 2021-12-08 14:10:00 74 [in_i] Commo n [facility] weight 2021-12-08 14:10:00 208.2 [lb_av] Co mmon [facility] temperature 2021-12-08 14:10:00 98.1 [degF] Com [facility] bmi 2021-12-08 14:10:00 26.73 kg/m2 Comm on [facility] oximetry 2021-12-08 14:10:00 97 % Commo n [facility] respiratory rate 2021-12-08 14:10:00 17 /min [facility] blood pressure systolic 2021-12-08 14:10:00 132 mm[Hg] Common [facility] blood pressure diastolic 2021-12-08 14:10:00 63 mm[Hg] Common [facility] height 2021-12-08 13:50:00 74 [in_i] Commo n [facility] weight 2021-12-08 13:50:00 208.2 [lb_av] Co mmon [facility] temperature 2021-12-08 13:50:00 98.1 [degF] Com mon [facility] bmi 2021-12-08 13:50:00 26.73 kg/m2 Comm on [facility] oximetry 2021-12-08 13:50:00 98.1 % Commo n [facility] blood pressure systolic 2021-12-08 13:50:00 132 mm[Hg] Common [facility] blood pressure diastolic 2021-12-08 13:50:00 63 mm[Hg] Common [facility] height 2021-09-11 08:10:00 74 [in_i] Commo n [facility] weight 2021-09-11 08:10:00 198 [lb_av] Comm on [facility] temperature 2021-09-11 08:10:00 98 [degF] Comm on [facility] bmi 2021-09-11 08:10:00 25.42 kg/m2 Comm on [facility] blood pressure systolic 2021-09-11 08:10:00 117 mm[Hg] Common [facility] blood pressure diastolic 2021-09-11 08:10:00 65 mm[Hg] [facility] Procedures Procedure Date / Time Performed Performing Clinicia n Source ASSIGNMENT OF BENEFITS 2019-06-26 14:52:33 Docto r Unassigned, [facility] Hospital Encounters Start Date/Time End Date/Time Encounter Type Admission Type Attending Clinicians Care Facility Care Department Encounter ID Source 2023-08-20 11:26:00 [id number] [facility] 2023-05-17 08:20:00 [facility] [id number] [facility] 2022-10-22 10:53:00 [facility] [id number] [facility] 2021-12-10 14:39:26 [facility] [id number] [facility] 2021-12-10 14:05:28 [facility] [id number] [facility] 2021-12-10 13:31:45 [facility] [id number] [facility] 2021-12-10 13:09:23 Outpatient Barriga, Won [facility] [id number] [facility] 2021-12-10 12:46:42 Outpatient Barriga, Won [facility]C [facility] [id number] [facility] 2021-12-10 12:37:57 Outpatient Barriga, Won [facility] [id number] [facility] 2021-12-10 12:37:19 Outpatient Barriga, Won [facility] [id number] [facility] 2021-12-10 12:36:07 Outpatient Barriga, Won [facility] [id number] [facility] 2021-12-10 11:41:51 Outpatient Barriga, Won [facility] [id number] [facility] 2021-12-10 11:16:20 Outpatient Barriga, Won [facility] [id number] [facility] 2021-12-10 10:59:18 Outpatient Barriga, Won STL[facility]C [facility] [id number] [facility] 2023-06-04 00:00:00 2023-06-04 00:00:00 (TEL) STLMLC [facility] [id number] [facility] 2023-05-24 00:00:00 2023-05-24 00:00:00 OFFICE VISIT ESTAB PT LEVEL 4 [facility]C ST[facility] [id number] [facility] 2023-03-03 00:00:00 2023-03-03 00:00:00 (TEL) STLMLC ST[facility] [id number] [facility] 2023-02-08 00:00:00 2023-02-08 00:00:00 (TEL) STLMLC STL[facility]C [id number] [facility] 2023-01-26 00:00:00 2023-01-26 00:00:00 OFFICE VISIT ESTAB PT LEVEL 4 STLMLC STL[facility]C [id number] [facility] 2023-01-26 00:00:00 2023-01-26 00:00:00 SUB [facility] VISIT STLMLC STLMLC [id number] [facility] 2023-01-01 00:00:00 2023-01-01 00:00:00 OFFICE VISIT ESTAB PT LEVEL 3 [facility]LMLC STL[facility]C [id number] [facility] 2023-01-01 00:00:00 2023-01-01 00:00:00 (TEL) STLMLC STLMLC [id number] [facility] 2022-12-22 00:00:00 2022-12-22 00:00:00 (TEL) STLMLC STLMLC [id number] [facility] 2022-10-26 00:00:00 2022-10-26 00:00:00 OFFICE VISIT ESTAB PT LEVEL 4 STLMLC STLMLC [id number] [facility] 2022-08-24 00:00:00 2022-08-24 00:00:00 OFFICE VISIT ESTAB PT LEVEL 4 [facility]LMLC STL[facility]C [id number] [facility] 2022-08-20 00:00:00 2022-08-20 00:00:00 (TEL) STLMLC STLMLC [id number] [facility] 2022-06-04 00:00:00 2022-06-04 00:00:00 OFFICE VISIT EST PT LEVEL 3 STLMLC STLMLC [id number] [facility] 2022-06-02 00:00:00 2022-06-02 00:00:00 (TEL) STLMLC STLMLC [id number] [facility] 2022-03-10 00:00:00 2022-03-10 00:00:00 OFFICE VISIT ESTAB PT LEVEL 4 STLMLC STLMLC [id number] [facility] 2022-03-09 00:00:00 2022-03-09 00:00:00 (TEL) STLMLC STLMLC [id number] [facility] 2022-02-16 00:00:00 2022-02-16 00:00:00 (TEL) STLMLC STLMLC [id number] [facility] 2021-12-08 00:00:00 2021-12-08 00:00:00 OFFICE VISIT ESTAB PT LEVEL 4 STLMLC STLMLC [id number] [facility] 2021-12-08 00:00:00 2021-12-08 00:00:00 SUB [facility] VISIT STLMLC STLMLC [id number] [facility] 2021-09-15 00:00:00 2021-09-15 00:00:00 (TEL) STLMLC STLMLC [id number] [facility] 2021-09-11 00:00:00 2021-09-11 00:00:00 OFFICE VISIT ESTAB PT LEVEL 4 STLMLC STLMLC [id number] [facility] 2021-07-07 00:00:00 2021-07-07 00:00:00 Outpatient STLMLC ST[facility] [id number] [facility] 2021-06-13 00:00:00 2021-06-13 00:00:00 Outpatient STLMLC [facility] [id number] [facility] 2021-05-22 00:00:00 2021-05-22 00:00:00 Outpatient STLMLC [facility] [id number] [facility] 2021-05-21 00:00:00 2021-05-21 00:00:00 Outpatient STLMLC STL[facility]C [id number] [facility] 2021-04-15 00:00:00 2021-04-15 00:00:00 Outpatient STLMLC STL[facility]C [id number] [facility] 2021-01-23 00:00:00 2021-01-23 00:00:00 Outpatient STLMLC STL[facility]C [id number] [facility] 2021-01-21 00:00:00 2021-01-21 00:00:00 Outpatient STLMLC STL[facility]C [id number] [facility] 2021-01-16 00:00:00 2021-01-16 00:00:00 Outpatient STLMLC STL[facility]C [id number] [facility] 2020-11-14 00:00:00 2020-11-14 00:00:00 Outpatient STLMLC STL[facility]C [id number] [facility] 2020-10-24 00:00:00 2020-10-24 00:00:00 Outpatient STLMLC STLMLC [id number] [facility] 2020-07-25 09:00:00 2020-07-25 09:00:00 [facility] [id number] [facility] 2020-07-25 08:00:00 2020-07-25 08:00:00 [facility] [id number] [facility] 2020-05-20 09:15:00 2020-05-20 09:15:00 [facility] [id number] [facility] 2020-04-19 08:15:00 2020-04-19 08:15:00 [facility] [id number] [facility] 2020-03-19 08:30:00 2020-03-19 08:30:00 [facility] [id number] [facility] 2020-02-13 13:20:00 2020-02-13 13:20:00 [facility] [id number] [facility] 2020-02-13 09:10:00 2020-02-13 09:10:00 [facility] [id number] [facility] 2020-01-18 08:15:00 2020-01-18 08:15:[address] [facility] [id number] [facility] 2019-12-12 15:15:00 2019-12-12 15:15:00 [facility] [id number] [facility] 2019-12-11 15:03:00 2019-12-11 15:03:[address] [facility] [facility] [address] [facility] [id number] [facility] 2019-11-30 10:06:00 2019-11-30 10:06:00 [facility] [address] [facility] [id number] [facility] 2019-11-30 08:36:00 2019-11-30 08:36:00 [facility] [id number] [facility] 2019-11-22 11:29:00 2019-11-22 11:29:00 [facility] [id number] [facility] 2019-11-22 08:00:00 2019-11-22 08:00:00 [facility] [id number] [facility] 2019-10-30 09:58:00 2019-10-30 09:58:00 [facility] [facility] [address] [facility] [id number] [facility] 2019-10-17 09:00:00 2019-10-17 09:00:00 [facility] [id number] [facility] 2019-10-10 17:02:00 2019-10-10 17:02:00 [facility] [address] [facility] [id number] [facility] 2019-09-21 10:00:00 2019-09-21 10:00:00 [facility] [address] [facility] [id number] [facility] 2019-08-15 10:29:00 2019-08-15 10:29:00 [facility] [address] [facility] [id number] [facility] 2019-07-20 13:45:00 2019-07-20 13:45:00 [facility] [place] [facility] Medicine [id number] [facility] 2019-07-13 10:53:00 2019-07-13 10:53:00 [facility] [place] [facility] [id number] [facility] 2019-06-26 09:53:08 2019-06-26 10:08:08 Margin Analyst Visit 1, Adc Lab Jessica De La Garza [facility] [id number] [facility] 2019-06-26 00:00:00 2019-06-26 00:00:00 Orders Only Doctor Unassigned, [place] [facility] [id number] [facility] 2019-06-15 08:45:00 2019-06-15 08:45:00 [facility] [place] [facility] Medicine [id number] [facility] 2019-06-09 09:31:00 2019-06-09 09:31:00 [facility] [place] [facility] [id number] [facility] 2018-06-22 10:45:00 2018-06-22 10:45:00 [facility] [place] [facility] [id number] [facility] Results Test Description Test Time Test Comments Results Result Co mments Source PSA W/REFLEX TO FREE [id number] 00:00:00* Test Item Value Reference Range Interpretation Comme nts PROSTATE SPECIFIC AG (test code = 02724-7) 2.14 NG/ML See_Comment [Automated messa ge] The system which generated this result transmitted reference range: <=4.00 NG/ML. The reference range was not used to interpret this result as normal/abnormal. HEMOGLOBIN [id number] 00:00:00* Test Item Value Reference Range Interpretation Comme nts HEMOGLOBIN A1c (test code = 4548-4) 5.8 % See_Comment H [Automated messa ge] The system which generated this result transmitted reference range: 4.2-5.6 %. The reference range was not used to interpret this result as normal/abnormal. TSH REFLEX TO FREE [id number] 00:00:00* Test Item Value Reference Range Interpretation Comme nts TSH REFLEX TO FREE T4 (test code = 10415-3) 1.240 UIU/ML See_Comment [Automated messa ge] The system which generated this result transmitted reference range: 0.400-4.100 UIU/ML. The reference range was not used to interpret this result as normal/abnormal. DRUG ABUSE SCREEN 13 REFLEX [id number] 00:00:00* Test Item Value Reference Range Interpretation Comme nts 6-ACETYLMORPHINE (test code = 28563-0) NEGATIVE NEGATIVE AMPHETAMINES (test code = 92832-3) NEGATIVE NEGATIVE BARBITURATES (test code = 57722-5) NEGATIVE NEGATIVE BENZODIAZEPINES (test code = 71523-2) NEGATIVE NEGATIVE BUPRENORPHINE (test code = 79772-5) NEGATIVE NEGATIVE CANNABINOIDS (test code = 94120-2) NEGATIVE NEGATIVE COCAINE METABOLITE (test code = 87266-3) NEGATIVE NEGATIVE FENTANYL (test code = 03110-2) NEGATIVE NEGATIVE MDMA (test code = 07472-2) NEGATIVE NEGATIVE METHADONE (test code = 10853-7) NEGATIVE NEGATIVE OPIATES (test code = 41673-2) SEE REFLEX TESTING NEGATIVE A OXYCODONE (test code = 89991-6) NEGATIVE NEGATIVE PHENCYCLIDINE (test code = 89501-5) NEGATIVE NEGATIVE UA, MICROSCOPIC, REFLEX TO [id number] 00:00:00* Test Item Value Reference Range Interpretation Comme nts APPEARANCE (test code = 5767-9) CLEAR CLEAR BACTERIA (test code = 26737-0) NONE SEEN NONE SEEN BILIRUBIN (test code = 5770-3) NEGATIVE NEGATIVE CASTS, HYALINE (test code = 34066-6) TRACE NONE-TRACE COLOR (test code = 5778-6) YELLOW YELLOW-STRAW EPITHELIAL CELLS (test code = 67305-5) 0-5 /HPF See_Comment [Automated [employer]] The system which generated this result transmitted reference range: 0-5 /HPF. The reference range was not used to interpret this result as normal/abnormal. GLUCOSE (test code = 5792-7) NEGATIVE NEGATIVE KETONES (test code = 5797-6) NEGATIVE NEGATIVE LEUKOCYTE ESTERASE (test code = 5799-2) NEGATIVE NEGATIVE NITRITE (test code = 5802-4) NEGATIVE NEGATIVE OCCULT BLOOD (test code = 45368-5) NEGATIVE NEGATIVE pH (test code = 5803-2) 5.0 5.0-9.0 PROTEIN (test code = 05136-4) 1+ NEGATIVE A RED BLOOD CELLS (test code = 91429-3) 0-2 /HPF See_Comment [Automated [employer]] The system which generated this result transmitted reference range: 0-2 /HPF. The reference range was not used to interpret this result as normal/abnormal. SPECIFIC GRAVITY (test code = 5811-5) 1.018 1.005-1.035 UROBILINOGEN (test code = 37829-9) 0.2 MG/DL See_Comment [Automated [employer]] The system which generated this result transmitted reference range: <=2.0 MG/DL. The reference range was not used to interpret this result as normal/abnormal. WHITE BLOOD CELLS (test code = 61814-5) 0-5 /HPF See_Comment [Automated [employer]] The system which generated this result transmitted reference range: 0-5 /HPF. The reference range was not used to interpret this result as normal/abnormal. URINALYSIS (CULTURE IF INDICATED)2023-08-16 00:00:00* Test Item Value Reference Range Interpretation Comme nts APPEARANCE (test code = 5767-9) CLEAR CLEAR BACTERIA (test code = 47347-7) NONE SEEN NONE SEEN BILIRUBIN (test code = 5770-3) NEGATIVE NEGATIVE CASTS, HYALINE (test code = 72732-2) TRACE NONE-TRACE COLOR (test code = 5778-6) YELLOW YELLOW-STRAW EPITHELIAL CELLS (test code = 71608-1) 0-5 /HPF See_Comment [Automated messa ge] The system which generated this result transmitted reference range: 0-5 /HPF. The reference range was not used to interpret this result as normal/abnormal. GLUCOSE (test code = 5792-7) NEGATIVE NEGATIVE KETONES (test code = 5797-6) NEGATIVE NEGATIVE LEUKOCYTE ESTERASE (test code = 5799-2) NEGATIVE NEGATIVE NITRITE (test code = 5802-4) NEGATIVE NEGATIVE OCCULT BLOOD (test code = 36071-9) NEGATIVE NEGATIVE pH (test code = 5803-2) 5.0 5.0-9.0 PROTEIN (test code = 25928-8) 1+ NEGATIVE A RED BLOOD CELLS (test code = 93692-1) 0-2 /HPF See_Comment [Automated messa ge] The system which generated this result transmitted reference range: 0-2 /HPF. The reference range was not used to interpret this result as normal/abnormal. SPECIFIC GRAVITY (test code = 5811-5) 1.018 1.005-1.035 UROBILINOGEN (test code = 10810-9) 0.2 MG/DL See_Comment [Automated messa ge] The system which generated this result transmitted reference range: <=2.0 MG/DL. The reference range was not used to interpret this result as normal/abnormal. WHITE BLOOD CELLS (test code = 95414-2) 0-5 /HPF See_Comment [Automated messa ge] The system which generated this result transmitted reference range: 0-5 /HPF. The reference range was not used to interpret this result as normal/abnormal. LIPID PANEL WITH REFLEX DIRECT [id number] 00:00:00* Test Item Value Reference Range Interpretation Comme nts CALC LDL CHOL (test code = 25255-3) 174 MG/DL See_Comment H [Automated messa ge] The system which generated this result transmitted reference range: <100 MG/DL. The reference range was not used to interpret this result as normal/abnormal. CHOLESTEROL (test code = 2093-3) 260 MG/DL See_Comment H [Automated messa ge] The system which generated this result transmitted reference range: <200 MG/DL. The reference range was not used to interpret this result as normal/abnormal. HDL CHOLESTEROL (test code = 2085-9) 47 MG/DL See_Comment [Automated messa ge] The system which generated this result transmitted reference range: >39 MG/DL. The reference range was not used to interpret this result as normal/abnormal. RISK RATIO LDL/HDL (test code = 81255-6) 3.70 RATIO See_Comment H [Automated message] The system which generated this result transmitted reference range: <3.55 RATIO. The reference range was not used to interpret this result as normal/abnormal. TRIGLYCERIDES (test code = 2571-8) 218 MG/DL See_Comment H [Automated messa ge] The system which generated this result transmitted reference range: <150 MG/DL. The reference range was not used to interpret this result as normal/abnormal. OPIATE, QUANT, [id number] 00:00:00* Test Item Value Reference Range Interpretation Comme nts 6-ACETYLMORPHINE QNT (test code = 06006-0) <10 ng/mL See_Comment [Automated message] The system which generated this result transmitted reference range: <10 ng/mL. The reference range was not used to interpret this result as normal/abnormal. CODEINE QNT (test code = 23753-5) <50 ng/mL See_Comment [Automated messa ge] The system which generated this result transmitted reference range: <100 ng/mL. The reference range was not used to interpret this result as normal/abnormal. HYDROCODONE QNT (test code = 33471-7) 2241 ng/mL See_Comment H [Automated messa ge] The system which generated this result transmitted reference range: <100 ng/mL. The reference range was not used to interpret this result as normal/abnormal. HYDROMORPHONE QNT (test code = 79715-8) 527 ng/mL See_Comment H [Automated messa ge] The system which generated this result transmitted reference range: <100 ng/mL. The reference range was not used to interpret this result as normal/abnormal. MORPHINE QNT (test code = 66620-0) <50 ng/mL See_Comment [Automated messa ge] The system which generated this result transmitted reference range: <100 ng/mL. The reference range was not used to interpret this result as normal/abnormal. OXYCODONE QNT (test code = 12474-6) <50 ng/mL See_Comment [Automated messa ge] The system which generated this result transmitted reference range: <100 ng/mL. The reference range was not used to interpret this result as normal/abnormal. OXYMORPHONE QNT (test code = 02441-5) <50 ng/mL See_Comment [Automated messa ge] The system which generated this result transmitted reference range: <100 ng/mL. The reference range was not used to interpret this result as normal/abnormal. COMPREHENSIVE METABOLIC [id number] 00:00:00* Test Item Value Reference Range Interpretation Comme nts ALBUMIN (test code = 1751-7) 4.3 G/DL See_Comment [Automated messa ge] The system which generated this result transmitted reference range: 3.5-5.2 G/DL. The reference range was not used to interpret this result as normal/abnormal. ALKALINE PHOSPHATASE (test code = 6768-6) 65 U/L See_Comment [Automated message] The system which generated this result transmitted reference range: 40-123 U/L. The reference range was not used to interpret this result as normal/abnormal. BILIRUBIN, TOTAL (test code = 1975-2) 0.3 MG/DL See_Comment [Automated message] The system which generated this result transmitted reference range: <=1.2 MG/DL. The reference range was not used to interpret this result as normal/abnormal. BUN (test code = 3094-0) 18 MG/DL See_Comment [Automated messa ge] The system which generated this result transmitted reference range: 8-23 MG/DL. The reference range was not used to interpret this result as normal/abnormal. CALCIUM (test code = 13315-8) 9.9 MG/DL See_Comment [Automated messa ge] The system which generated this result transmitted reference range: 8.5-10.5 MG/DL. The reference range was not used to interpret this result as normal/abnormal. CALC A/G RATIO (test code = 1759-0) 1.2 RATIO See_Comment [Automated messa ge] The system which generated this result transmitted reference range: 1.0-2.6 RATIO. The reference range was not used to interpret this result as normal/abnormal. CALC BUN/CREAT (test code = 3097-3) 20 RATIO See_Comment [Automated messa ge] The system which generated this result transmitted reference range: 6-28 RATIO. The reference range was not used to interpret this result as normal/abnormal. CALC GLOBULIN (test code = 57813-4) 3.5 G/DL See_Comment [Automated messa ge] The system which generated this result transmitted reference range: 1.9-3.7 G/DL. The reference range was not used to interpret this result as normal/abnormal. CARBON DIOXIDE (test code = 1963-8) 21 MEQ/L See_Comment [Automated messa ge] The system which generated this result transmitted reference range: 19-31 MEQ/L. The reference range was not used to interpret this result as normal/abnormal. CHLORIDE (test code = 2075-0) 106 MEQ/L See_Comment [Automated messa ge] The system which generated this result transmitted reference range: 95-107 MEQ/L. The reference range was not used to interpret this result as normal/abnormal. CREATININE (test code = 2160-0) 0.90 MG/DL See_Comment [Automated messa ge] The system which generated this result transmitted reference range: 0.80-1.40 MG/DL. The reference range was not used to interpret this result as normal/abnormal. eGFR (2020 CKD-EPI) (test code = 72187-8) 97 ML/MIN/1.73 See_Comment [Automated messa ge] The system which generated this result transmitted reference range: >60 ML/MIN/1.73. The reference range was not used to interpret this result as normal/abnormal. GLUCOSE (test code = 1558-6) 128 MG/DL See_Comment H [Automated messa ge] The system which generated this result transmitted reference range: 70-99 MG/DL. The reference range was not used to interpret this result as normal/abnormal. POTASSIUM (test code = 2823-3) 4.2 MEQ/L See_Comment [Automated messa ge] The system which generated this result transmitted reference range: 3.5-5.4 MEQ/L. The reference range was not used to interpret this result as normal/abnormal. PROTEIN, TOTAL (test code = 2885-2) 7.8 G/DL See_Comment [Automated messa ge] The system which generated this result transmitted reference range: 6.1-8.3 G/DL. The reference range was not used to interpret this result as normal/abnormal. AST (test code = 1920-8) 25 U/L See_Comment [Automated messa ge] The system which generated this result transmitted reference range: 9-50 U/L. The reference range was not used to interpret this result as normal/abnormal. ALT (test code = 1742-6) 19 U/L See_Comment [Automated messa ge] The system which generated this result transmitted reference range: 5-50 U/L. The reference range was not used to interpret this result as normal/abnormal. SODIUM (test code = 2951-2) 140 MEQ/L See_Comment [Automated messa ge] The system which generated this result transmitted reference range: 133-146 MEQ/L. The reference range was not used to interpret this result as normal/abnormal.
[2023-11-04 11:31] LABS: Absolute Lymphocytes (CBC) 2.7 K/uL (0.7-4.9); Hematocrit 44.9 % (39.6-49.0); Lymphocytes % 32.5 % (15.3-44.8); MCV 89.6 fL (80-100); Platelets 313 thou/uL (152-406); RBC Red Blood Cell Count 5.01 M/uL (4.33-5.43)
--- NOTE | 2023-11-04 11:50 | RAD REPORT ---
EXAM DESCRIPTION: Telma Roldan (2 Views)11/04/2023 11:40 am CLINICAL HISTORY: Cough COMPARISON: 2013 FINDINGS: The lungs appear clear of acute infiltrate. The heart is normal size IMPRESSION: No acute abnormalities displayed
[2023-11-04 11:54] LABS: ALT/SGPT 25 U/L (16-61); AST/SGOT 19 U/L (15-37); Albumin 3.3 g/dL (3.4-5.0); Alkaline Phosphatase 59 U/L (45-117); BUN Blood Urea Nitrogen 9 mg/dL (7-18); Bicarbonate 27 mEq/L (21-32); Bilirubin Total 0.3 mg/dL (0.2-1.0); Glomerular Filtration Rate 82 ml/min (=/>90); Glucose Level 112 mg/dL (74-106); NT PRO-BNP 168 pg/mL (<125); Potassium 3.5 mEq/L (3.5-5.1); Protein, Total 8.7 g/dL (6.4-8.2); Sodium Level 141 mEq/L (136-145)
[2023-11-04 12:00] LABS: Bilirubin Direct < 0.1 mg/dL (0-0.2); Bilirubin Indirect, Calculated ND mg/dL (0.2-0.8)
[2023-11-04 12:04] LABS: Troponin High Sensitivity 69.4 pg/mL (<58.9)
--- NOTE | 2023-11-04 14:35 | EDPHYS ---
Physician Documentation [facility] Name: Diego Watt Age: 62 yrs Sex: Male : 1960 Arrival Date: 11/04/2023 Time: 10:01 Bed 11 Private MD: ED Physician Nixon Humphrey HPI: 11/04 12:50 This 62 yrs old Black Male presents to ER via Ambulatory with complaints of Flu rt Symptoms. 12:50 Patient with history of COPD presents to the ED with cough, congestion, shortness of rt breath for about 2 weeks. Started worsening over the past few days. Reports body aches. Denies other acute complaint at this time, symptoms are moderate in severity, no other aggravating relieving factors.. Historical: - Allergies: 10:53 No Known Allergies; ll1 - PMHx: 10:53 COPD; Hyperlipidemia; Hypertension; Chronic pain; ll1 - PSHx: 10:53 muscle removed for ankle repair; ll1 - Immunization history:: Adult Immunizations up to date. - Social history:: Smoking status: Patient/guardian denies using tobacco, the patient reports quitting approximately 20 years ago. - Family history:: not pertinent. ROS: 12:50 Cardiovascular: Negative for chest pain, palpitations, and edema, Abdomen/GI: Negative rt for abdominal pain, nausea, vomiting, diarrhea, and constipation, MS/Extremity: Negative for injury and deformity, Skin: Negative for injury, rash, and discoloration, Neuro: Negative for headache, weakness, numbness, tingling, and seizure, Psych: Negative for depression, anxiety, suicide ideation, homicidal ideation, and hallucinations, 12:50 Constitutional: Positive for body aches, malaise, 12:50 Respiratory: Positive for cough, shortness of breath, Exam: 12:50 Constitutional: This is a well developed, well nourished patient who is awake, alert, rt and in no acute distress. Head/Face: Normocephalic, atraumatic. Chest/axilla: Normal chest wall appearance and motion. Nontender with no deformity. No lesions are appreciated. Cardiovascular: Regular rate and rhythm with a normal S1 and S2. No gallops, murmurs, or rubs. Normal PMI, no JVD. No pulse deficits. Respiratory: Lungs have equal breath sounds bilaterally, clear to auscultation and percussion. No rales, rhonchi or wheezes noted. No increased work of breathing, no retractions or nasal flaring. Abdomen/GI: Soft, non-tender, with normal bowel sounds. No distension or tympany. No guarding or rebound. No evidence of tenderness throughout. Skin: Warm, dry with normal turgor. Normal color with no rashes, no lesions, and no evidence of cellulitis. MS/ Extremity: Pulses equal, no cyanosis. Neurovascular intact. Full, normal range of motion. Neuro: Awake and alert, GCS 15, oriented to person, place, time, and situation. Cranial nerves II-XII grossly intact. Motor strength 5/5 in all extremities. Sensory grossly intact. Cerebellar exam normal. Normal gait. Psych: Awake, alert, with orientation to person, place and time. Behavior, mood, and affect are within normal limits. 12:50 ECG was reviewed by the Attending Physician. Vital Signs: 10:54 BP 140 / 87; Pulse 86; Resp 18; Temp 98.1; Pulse Ox 97% ; Weight 90.72 kg; Height 6 ft. ll1 2 in. ; Pain 10/10; 14:42 BP 137 / 84; Pulse 79; Resp 18; Pulse Ox 97% on R/A; me1 10:54 Body Mass Index 25.68 (90.72 kg, 187.96 cm) ll1 10:54 Pain Scale: Adult ll1 MDM: 10:58 Patient medically screened. rt 16:56 Differential Diagnosis COPD exacerbation, acute coronary syndrome, CHF, pneumonia. Data rt reviewed: vital signs, nurses notes, lab test result(s), EKG, radiologic studies. Consideration of Admission/Observation Escalation of care including admission/observation considered. Recommended admission to the patient for elevated troponin, patient states that he strongly does not wish stay in the hospital. Repeat troponin shows no changes. Suspect COPD is the etiology, patient to follow-up with cardiology as an outpatient, strict return precautions for any worsening symptoms to include chest pain were discussed with the patient who verbalized understanding. He has decision-making capacity.. I considered the following discharge prescriptions or medication management in the emergency department Medications were administered in the Emergency Department. See MAR. Independent interpretation of the following test(s) in the Emergency Department X-Ray: My interpretation is No pneumonia seen on interpretation of x-ray images. Care significantly affected by the following chronic conditions: Chronic Obstructive Pulmonary Disease. Counseling: I had a detailed discussion with the patient and/or guardian regarding the historical points, exam findings, and any diagnostic results supporting the discharge/admit diagnosis, lab results, radiology results, the need for outpatient follow up, to return to the emergency department if symptoms worsen or persist or if there are any questions or concerns that arise at home. Response to treatment: the patient's symptoms have markedly improved after treatment. 11/04 10:59 Order name: Basic Metabolic Panel; Complete Time: 12: rt 11/04 10:59 Order name: CBC with Diff; Complete Time: 11:55 rt 11/04 10:59 Order name: LFT's; Complete Time: 12: rt 11/04 10:59 Order name: Magnesium; Complete Time: 12: rt 11/04 10:59 Order name: NT PRO-BNP; Complete Time: 12: rt 11/04 10:59 Order name: Troponin HS; Complete Time: 12: rt 11/04 12:26 Order name: Troponin High Sensitivity; Complete Time: 14: rt 11/04 10:59 Order name: Chest Pa And Lat (2 Views) XRAY; Complete Time: 11: rt 11/04 10:59 Order name: EKG - Nurse/Tech; Complete Time: 11: rt 11/04 10:59 Order name: IV Saline Lock; Complete Time: 11: rt 11/04 10:59 Order name: Labs collected and sent; Complete Time: 11: rt 11/04 10:59 Order name: O2 Per Protocol; Complete Time: : rt 11/04 10:59 Order name: O2 Sat Monitoring; Complete Time: 11: rt EC:50 Rate is 70 beats/min. Rhythm is regular, Normal Sinus Rhythm with No ectopy. QRS Dobson rt is Normal. UT interval is normal. QRS interval is normal. QT interval is normal. No Q waves. T waves are Normal. No ST changes noted. Interpreted by me. Administered Medications: :55 Drug: DuoNeb Nebulize (3:1) (2.5 mg - 0.5 mg) 3 ml Nebulizer once Route: Nebulizer; ap3 14:37 Follow up: Response: No adverse reaction; Marked relief of symptoms me1 11:55 Drug: MethylPrednisoLONE IVP 125 mg IVP once Route: IVP; Site: right antecubital; ap3 14:37 Follow up: Response: No adverse reaction me1 Disposition Summary: 11/04/23 14:34 Discharge Ordered Notes: Location: Home rt Problem: new rt Symptoms: have improved rt Condition: Stable rt Diagnosis - COPD/ Chronic obstructive pulmonary disease, unspecified rt - Elevated troponin rt Followup: rt - With: Private Physician - When: 2 - 3 days - Reason: Followup: rt - With: Kojo Gtz MD - When: 5 - 6 days - Reason: Discharge Instructions: - Discharge Summary Sheet rt - Chronic Obstructive Pulmonary Disease rt Forms: - Medication Reconciliation Form rt - Thank You Letter rt - Antibiotic Education rt - Prescription Opioid Use rt - Patient Portal Instructions rt - Leadership Thank You Letter rt Prescriptions: - Prednisone 20 mg Oral Tablet - take 2 tablets ORAL route once daily for 5 days; 10 tablet; Refills: 0, Product rt Selection Permitted Signatures: Dispatcher [employer] Dina Gottlieb RN RN ap3 Maddi Hunter RN RN ll1 Nixon Humphrey MD MD rt Eulalia Ko RN me1
--- NOTE | 2023-11-04 14:35 | ER ---
Nurse's Notes [facility] Name: Diego Watt Age: 62 yrs Sex: Male : 1960 Arrival Date: 11/04/2023 Time: 10:01 Bed 11 Private MD: Diagnosis: COPD/ Chronic obstructive pulmonary disease, unspecified;Elevated troponin Presentation: 11/04 10:54 Chief complaint: Patient states: Cough, congestion, SOB, weak, fatigue, body aches for ll1 2-3 weeks. No fever this week. Coronavirus screen: Vaccine status: Patient reports receiving the 2nd dose of the covid vaccine. Client denies travel out of the [place] in the last 14 days. congestion, cough unrelated to allergies, difficulty breathing, fatigue, Client presents with at least one sign or symptom that may indicate coronavirus-19. Standard/surgical mask placed on the client. Ebola Screen: Patient denies travel to an Ebola-affected area in the 21 days before illness onset. Initial Sepsis Screen: Does the patient meet any 2 criteria? No. Patient's initial sepsis screen is negative. Does the patient have a suspected source of infection? No. Patient's initial sepsis screen is negative. Risk Assessment: Do you want to hurt yourself or someone else? Patient reports no desire to harm self or others. Onset of symptoms was October 15, 2023. 10:54 Method Of Arrival: Ambulatory 1 10:54 Acuity: RANJEET 3 ll1 Triage Assessment: 10:56 General: Appears uncomfortable, ill, Behavior is calm, cooperative, appropriate for ll1 age. Pain: Complains of pain in body Quality of pain is described as aching. EENT: Reports nasal congestion. Respiratory: Reports shortness of breath cough that is. Historical: - Allergies: 10:53 No Known Allergies; ll1 - PMHx: 10:53 COPD; Hyperlipidemia; Hypertension; Chronic pain; ll1 - PSHx: 10:53 muscle removed for ankle repair; ll1 - Immunization history:: Adult Immunizations up to date. - Social history:: Smoking status: Patient/guardian denies using tobacco, the patient reports quitting approximately 20 years ago. - Family history:: not pertinent. Screenin:33 [facility] ED Fall Risk Assessment (Adult) History of falling in the last 3 months, me1 including since admission No falls in past 3 months (0 pts) Confusion or Disorientation No (0 pts) Intoxicated or Sedated No (0 pts) Impaired Gait No (0 pts) Mobility Assist Device Used No (0 pt) Altered Elimination No (0 pt) Score/Fall Risk Level 0 - 2 = Low Risk Maintained a safe environment, Provided non-skid footwear, Hourly rounding (assess needs \T\ fall precautionary measures) done. Abuse screen: Denies threats or abuse. Nutritional screening: No deficits noted. Tuberculosis screening: No symptoms or risk factors identified. Assessment: 14:31 General: Appears uncomfortable, ill, Behavior is calm, cooperative, appropriate for me1 age, Reports. 14:33 General: Reports Cough, congestion, SOB, weak, fatigue, body aches for 2-3 weeks. No me1 fever this week. Pain: Denies pain. Neuro: Level of Consciousness is awake, alert, obeys commands, Oriented to person, place, time, situation, Appropriate for age. Cardiovascular: Capillary refill < 3 seconds Patient's skin is warm and dry. Respiratory: Reports shortness of breath cough that is congestion x 2-3 weeks. Airway is patent Respiratory effort is even, unlabored, Respiratory pattern is regular, symmetrical. Vital Signs: 10:54 BP 140 / 87; Pulse 86; Resp 18; Temp 98.1; Pulse Ox 97% ; Weight 90.72 kg; Height 6 ft. ll1 2 in. ; Pain 10/10; 14:42 BP 137 / 84; Pulse 79; Resp 18; Pulse Ox 97% on R/A; me1 10:54 Body Mass Index 25.68 (90.72 kg, 187.96 cm) ll1 10:54 Pain Scale: Adult ll1 ED Course: 10:02 Patient arrived in ED. rg4 10:21 Nixon Humphrey MD is Attending Physician. rt 10:56 Triage completed. ll1 10:56 Arm band placed on. ll1 11:26 Inserted saline lock: 20 gauge in right antecubital area, using aseptic technique. ap3 Blood collected. 11:38 Chest Pa And Lat (2 Views) XRAY In Process Unspecified. EDMS 12:09 Notified ED physician of a critical lab result(s). troponin 69.4. iw 13:43 Eulalia Ko, CHEN is Primary Nurse. me1 14:32 Kojo Gtz MD is Referral Physician. rt 14:33 Patient has correct armband on for positive identification. Bed in low position. Call me1 light in reach. Side rails up X2. Provided Education on: POC. Verbalized understanding. . 14:33 No provider procedures requiring assistance completed. me1 14:42 IV discontinued, intact, bleeding controlled, No redness/swelling at site. Pressure me1 dressing applied. Administered Medications: 11:55 Drug: DuoNeb Nebulize (3:1) (2.5 mg - 0.5 mg) 3 ml Nebulizer once Route: Nebulizer; ap3 14:37 Follow up: Response: No adverse reaction; Marked relief of symptoms me1 11:55 Drug: MethylPrednisoLONE IVP 125 mg IVP once Route: IVP; Site: right antecubital; ap3 14:37 Follow up: Response: No adverse reaction me1 Medication: 14:33 VIS not applicable for this client. me1 Outcome: 14:34 Discharge ordered by MD. rt 14:42 Discharged to home ambulatory, me1 14:42 Condition: stable 14:42 Discharge instructions given to patient, Instructed on discharge instructions, follow up and referral plans. medication usage, Demonstrated understanding of instructions, follow-up care, medications, Prescriptions given X 1, 14:42 Patient left the ED. me1 Signatures: Dispatcher [employer] Edel Hernandez RN Cassidy Garcia rg4 Dina Gruber RN RN ap3 Maddi Hunter RN RN ll1 Nixon Humphrey MD MD rt Eulalia Ko RN RN me1 Corrections: (The following items were deleted from the chart) 14:32 10:54 Chief complaint: Patient states: Cough, congestion, SOB, weak, fatigue, body me1 aches for 2-3 weeks. No fever this week. ll1
[2023-11-04 15:10] VITALS: BP 137/84; TEMP 98.1; O2SAT 97
--- NOTE | 2023-11-05 15:09 | EKG ---
Test Date: 2023-11-04 Test Time: 11:49:42 Electric Meter Reader: ALP MEASUREMENT RESULTS: Intervals: Rate: 70 VT: 156 QRSD: 106 QT: 426 QTc: 460 [place]: P: 70 VT: 156 QRS: 66 T: 57 INTERPRETIVE STATEMENTS: Normal sinus rhythm Normal ECG Compared to ECG 05/15/2014 17:23:14 No significant changes Electronically Signed On 11-05-23 15:07:40 [employer] by Kojo Gtz
== END ==
LOC: ER 10:01
DX: J44.1 Chronic obstructive pulmonary disease with (acute) exacerbation (principal); R79.89 Other specified abnormal findings of blood chemistry; I10 Essential (primary) hypertension
CPT/HCPCS: 93005; 85025; 80048; 36415; 83735; 80076; 84484 ×2; 83880; 71046; 94640; 96374; 99285; J7613; J7644; J2930